=== PATIENT | female | born 1940 | race Caucasian/White ===

== ENCOUNTER 2017-06-29 08:00 | Outpatient (CLI) | payer MEDICARE ==
[2017-06-29 19:17] LABS: BASOPHILS # (AUTO) 0.2 10^3/uL (0.0-0.1); BASOPHILS % (AUTO) 1.7 %; EOSINOPHILS # (AUTO) 0.3 10^3/uL (0.0-0.7); EOSINOPHILS % (AUTO) 2.8 %; LYMPHOCYTES % (AUTO) 17.9 %; MEAN CORPUSCULAR HGB CONC 32.2 g/dL (32.0-36.0); MEAN CORPUSCULAR VOLUME 93.2 fL (81.0-99.0); MONOCYTES # (AUTO) 0.7 10^3/uL (0.0-1.0); MONOCYTES % (AUTO) 6.2 %; NEUTROPHILS # (AUTO) 7.8 10^3/uL (1.5-6.6); NEUTROPHILS % (AUTO) 71.4 %; PLT - PLATELET COUNT 319 10^3/uL (130-450); RED BLOOD COUNT 4.67 10^6/uL (4.20-5.40); RED CELL DISTRIBUTION WIDTH 15.5 % (12.0-15.0); WHITE BLOOD COUNT 10.9 x10^3/uL (4.8-10.8)
[2017-06-29 20:16] LABS: HB2 TOTAL 15.4 g/dL; HEMOGLOBIN A1C 0.61 g/dL; HEMOGLOBIN A1C % 5.8 % (4.6-6.2)
== END 2017-06-29 08:01 ==
LOC: LAB.WCP 08:00
PROVIDERS: ATTEND Physician Assistant
DX: Z00.00 Encounter for general adult medical examination without abnormal findings (principal); I10 Essential (primary) hypertension
CPT/HCPCS: 36415; 80053; 80061; 83036; 83721; 84443; 85025

== ENCOUNTER 2017-07-02 08:41 | Outpatient (CLI) | payer MEDICARE ==
[2017-07-02 16:45] LABS: ALBUMIN/GLOBULIN RATIO 0.9 (1.0-2.2); ALKALINE PHOSPHATASE 51 IU/L (42-121); ALT ALANINE AMINOTRANSFERASE 25 IU/L (10-60); AST ASPARTATE AMINOTRANSFERASE 25 IU/L (10-42); BILIRUBIN,TOTAL 0.6 mg/dL (0.2-1.0); BUN - BLOOD UREA NITROGEN 36 mg/dL (6-20); CALCIUM 9.7 mg/dL (8.5-10.3); CARBON DIOXIDE - CO2 24 mmol/L (21-32); CHLORIDE 103 mmol/L (101-111); CHOLESTEROL 222 mg/dL; GFR - MDRD 54 (>89); GLUCOSE 110 mg/dL (70-100); HDL CHOLESTEROL 73 mg/dL; LDL CHOLESTEROL,CALCULATED 117 mg/dL; LDL/HDL RATIO 1.6 (<4.4); SODIUM 137 mmol/L (135-145); TOTAL PROTEIN 8.5 g/dL (6.7-8.2); URIC ACID 8.6 mg/dL (2.6-7.2); VLDL CHOLESTEROL 32 mg/dL
== END 2017-07-02 08:42 ==
LOC: LAB.WCP 08:41
PROVIDERS: ATTEND Physician Assistant
DX: Z00.00 Encounter for general adult medical examination without abnormal findings (principal); I10 Essential (primary) hypertension; M1A.9XX0 Chronic gout, unspecified, without tophus (tophi)
CPT/HCPCS: 36415; 80053; 80061; 83721; 84550

== ENCOUNTER 2019-11-18 13:44 | Outpatient (CLI) | payer MEDICARE | END 2019-11-18 13:45 | disposition critical access hospital (66) | LOC: EMS 13:44 | PROVIDERS: ATTEND Surgery | DX: R41.0 Disorientation, unspecified (principal); M25.532 Pain in left wrist | CPT/HCPCS: A0425; A0429 ==

== ENCOUNTER 2019-11-18 13:56 | Inpatient (IN) | payer MEDICARE ==
--- NOTE | 2019-11-18 14:13 | ED Physician Documentation ---
PD HPI FOCAL NEURO - Stated complaint Stated Complaint: FALL - Chief complaint Chief Complaint: Neuro - History obtained from History obtained from: Patient, Family (), EMS - Additional information Additional information: Sometime during the night last night she fell. She fell out of bed. This is been happening frequently per the . Over the last 3 weeks he says he is noted weakness on the left. Also some mild confusion started more recently. Last night after falling she could not get off the floor. She denies any injuries. Review of Systems Ten Systems: 10 systems reviewed and negative Constitutional: reports: Reviewed and negative Throat: reports: Reviewed and negative Cardiac: reports: Reviewed and negative PD PAST MEDICAL HISTORY - Present Medications Home Medications: Ambulatory Orders Medication Instructions Recorded Confirmed Allopurinol [Zyloprim] 300 mg PO DAILY 11/18/19 Aspirin [Aspirin EC] 325 mg PO DAILYWM PRN 11/18/19 Atenolol [Tenormin] 100 mg PO DAILY 11/18/19 - Allergies Allergies/Adverse Reactions: Allergies Allergy/AdvReac Type Severity Reaction Status Date / Time No Known Drug Allergies Allergy Verified 11/18/19 16:17 PD ED PE NORMAL - Vitals Vital signs reviewed: Yes - General General: Other (Oriented to person and place but not time, she knows the month but not the year. 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 Eye Opening: Spontaneous Motor: Obeys Commands Verbal: Confused GCS Score: 14 - Psych Psych: Normal mood, Normal affect NIHSS - Time Time: 14:05 - Level of Consciousness Level of consciousness: (0) Alert, Keenly responsive LOC Questions: (1) Answers one Q correctly LOC Commands: (0) Performs both correctly - Gaze Best Gaze: (0) Normal - Visual Visual: (0) No loss - Facial Palsy Facial Palsy: (0) Normal, symmetrical movement - Motor Arms (both separate) Motor Arm (right): (0) No drift Motor Arm (left): (1) Drift - Motor Legs (both separate) Motor Leg (right): (0) No drift Motor Leg (left): (1) Drift - Limb Ataxia Limb Ataxia: (0) Absent - Sensory Sensory: (0) Normal - Best Language Best Language: (0) No aphasia - Dysarthria Dysarthria: (0) Normal - Extinction and Inattention (formally neg Extinction and inattention: (0) No abnormality - Total Score/Results Total Score/Result: 3 Results - Vitals Vitals: Vital Signs - 24 hr 11/18/19 11/18/19 11/18/19 14:00 14:07 15:00 Temperature 36.7 C Heart Rate 116 H 112 H 108 H Respiratory 16 16 16 Rate Blood Pressure 129/75 138/82 H 142/83 H O2 Saturation 97 96 96 Oxygen O2 Source Room air - EKG (time done) 1404 Rate: Rate (enter#) (112) Rhythm: Sinus tachycardia [place]: Normal Intervals: Normal IA QRS: Normal Ischemia: Non specific changes Computer interpretation: Disagree with computer (artifact) - Labs Labs: Laboratory Tests 11/18/19 11/18/19 11/18/19 14:14 14:14 14:14 WBC 12.1 H RBC 4.86 Hgb 14.6 Hct 46.0 MCV 94.7 MCH 30.0 MCHC 31.7 L RDW 13.1 Plt Count 474 H MPV 10.4 Neut # (Auto) 8.6 H Lymph # (Auto) 1.8 [place] # (Auto) 0.9 Eos # (Auto) 0.7 Baso # (Auto) 0.1 Absolute Nucleated RBC 0.00 Nucleated RBC % 0.0 Sodium 142 Potassium 3.5 Chloride 105 Carbon Dioxide 26 Anion Gap 11.0 BUN 14 Creatinine 0.9 Estimated GFR (MDRD) 61 L Glucose 139 H Calcium 10.8 H Total Bilirubin 0.6 AST 22 ALT 21 Alkaline Phosphatase 76 Total Creatine Kinase 33 Troponin I High Sens 7.7 Total Protein 8.4 H Albumin 3.6 Globulin 4.8 H Albumin/Globulin Ratio 0.8 L Lipase 58 H Urine Color Urine Clarity Urine pH Ur Specific [place] Urine Protein Urine Glucose (UA) Urine Ketones Urine Occult Blood Urine Nitrite Urine Bilirubin Urine Urobilinogen Ur Leukocyte Esterase Urine RBC Urine WBC Ur Squamous Epith Cells Urine Bacteria Ur Microscopic Review Urine Culture Comments 11/18/19 14:44 WBC RBC Hgb Hct MCV MCH MCHC RDW Plt Count MPV Neut # (Auto) Lymph # (Auto) [place] # (Auto) Eos # (Auto) Baso # (Auto) Absolute Nucleated RBC Nucleated RBC % Sodium Potassium Chloride Carbon Dioxide Anion Gap BUN Creatinine Estimated GFR (MDRD) Glucose Calcium Total Bilirubin AST ALT Alkaline Phosphatase Total Creatine Kinase Troponin I High Sens Total Protein Albumin Globulin Albumin/Globulin Ratio Lipase Urine Color YELLOW Urine Clarity HAZY Urine pH 6.0 Ur Specific [place] 1.020 Urine Protein NEGATIVE Urine Glucose (UA) NEGATIVE Urine Ketones NEGATIVE Urine Occult Blood SMALL H Urine Nitrite POSITIVE H Urine Bilirubin NEGATIVE Urine Urobilinogen 0.2 (NORMAL) Ur Leukocyte Esterase LARGE H Urine RBC 0-5 Urine WBC >25 H Ur Squamous Epith Cells NONE SEEN Urine Bacteria Many H Ur Microscopic Review INDICATED Urine Culture Comments INDICATED - Rads (name of study) CT Head Radiology: EMP read contemporaneously (Volume loss and periventricular small vessel ischemic changes without obvious acute disease.Cerebral volume loss) PD MEDICAL DECISION MAKING - ED course ED course: 79-year-old woman presents with 1 to 2 weeks of left-sided weakness, now more acute confusion. Multiple falls including a fall last night and could not get out of bed even with her 's help. She has left-sided deficits. Time course consists firms probably a completed stroke. Also UTI. Administered Rocephin for same. Spoke with Dr. Venegas for admission at 3:25 PM. Departure - Departure Disposition: 66 [facility] DC/Xfer Clinical Impression: Encephalopathy Cerebrovascular accident (CVA) Qualifiers: CVA mechanism: unspecified Qualified Code(s): I63.9 - Cerebral infarction, unspecified Fall from bed Qualifiers: Encounter type: initial encounter Qualified Code(s): W06.XXXA - Fall from bed, initial encounter UTI (urinary tract infection) Qualifiers: Urinary tract infection type: site unspecified Hematuria presence: without hematuria Qualified Code(s): N39.0 - Urinary tract infection, site not specified Condition: Serious Discharge Date/Time: 11/18/19 17:00
[2019-11-18 14:18] LABS: BASOPHILS # (AUTO) 0.1 10^3/uL (0.0-0.1); BASOPHILS % (AUTO) 0.5 %; EOSINOPHILS # (AUTO) 0.7 10^3/uL (0.0-0.7); EOSINOPHILS % (AUTO) 5.7 %; HGB - HEMOGLOBIN 14.6 g/dL (12.0-16.0); LYMPHOCYTES # (AUTO) 1.8 10^3/uL (1.5-3.5); LYMPHOCYTES % (AUTO) 14.8 %; MEAN CORPUSCULAR HGB CONC 31.7 g/dL (32.0-36.0); MEAN CORPUSCULAR VOLUME 94.7 fL (81.0-99.0); MEAN PLATELET VOLUME 10.4 fL (7.9-10.8); MONOCYTES # (AUTO) 0.9 10^3/uL (0.0-1.0); MONOCYTES % (AUTO) 7.5 %; NEUTROPHILS # (AUTO) 8.6 10^3/uL (1.5-6.6); NEUTROPHILS % (AUTO) 71.2 %; PLT - PLATELET COUNT 474 10^3/uL (130-450); RED BLOOD COUNT 4.86 10^6/uL (4.20-5.40); RED CELL DISTRIBUTION WIDTH 13.1 % (12.0-15.0); WHITE BLOOD COUNT 12.1 x10^3/uL (4.8-10.8)
[2019-11-18 14:31] LABS: ALBUMIN 3.6 g/dL (3.2-5.5); ALBUMIN/GLOBULIN RATIO 0.8 (1.0-2.2); BILIRUBIN,TOTAL 0.6 mg/dL (0.2-1.0); CALCIUM 10.8 mg/dL (8.5-10.3); CREATININE 0.9 mg/dL (0.4-1.0); TOTAL PROTEIN 8.4 g/dL (6.7-8.2)
--- NOTE | 2019-11-18 14:47 | CT Report ---
PROCEDURE: HEAD WO INDICATIONS: L sided weakness TECHNIQUE: Noncontrast 4.5 mm thick angled axial sections acquired from the foramen magnum to the vertex. For r adiation dose reduction, the following was used: automated exposure control, adjustment of mA and/or kV according to patient size. COMPARISON: None FINDINGS: Image quality: Excellent. CSF spaces: Basal cisterns are patent. No extra-axial fluid collections. The ventricles are symmet kavitha in size and shape. Brain: No intracranial bleeds or masses. There is cerebral volume loss for age, with resultant vent ricular and sulcal prominence. There are periventricular and deep white matter chronic small vessel ischemic changes. There is intracranial internal carotid artery and vertebral artery atherosclerosis . Skull and face: Calvarium and visualized facial bones appear intact, without suspicious lesions. Sinuses: Visualized sinuses and mastoids are clear. IMPRESSION: No acute intracranial disease process. Reviewed by: Paulina Langley MD, PhD on 11/18/2019 2:46 PM PDT Approved by: Paulina Langley MD, PhD on 11/18/2019 2:46 PM PDT Station ID: [id number]
[2019-11-18 14:53] LABS: BILIRUBIN,URINE NEGATIVE (NEGATIVE); GLUCOSE, URINE (UA) NEGATIVE (NEGATIVE); KETONES,URINE (UA) NEGATIVE (NEGATIVE); LEUKOCYTE ESTERASE, URINE LARGE (NEGATIVE); NITRITE,URINE POSITIVE (NEGATIVE); OCCULT BLOOD,URINE SMALL (NEGATIVE); PROTEIN,URINE NEGATIVE (NEGATIVE); UROBILINOGEN,URINE 0.2 (NORMAL) E.U./dL (NORMAL)
[2019-11-18 14:59] LABS: CLARITY,URINE HAZY (CLEAR)
[2019-11-18 15:08] LABS: BACTERIA,URINE Many /HPF (None Seen); RBC,URINE 0-5 /HPF (0-5); SQUAMOUS EPITHELIAL CELL,UR NONE SEEN (<= Few)
[2019-11-18] MEDS ORDERED: cefTRIAXone 1 GM in SODIUM CHLORIDE 0.9% MINIBAG 100 ML IV STA (15:14)
[2019-11-18] MEDS ORDERED: cefTRIAXone 1 GM VIAL ONE (15:23)
[2019-11-18] MEDS ORDERED: ONDANSETRON 4 MG/2 ML VIAL IVP PRN (15:48)
[2019-11-18] MEDS: DEXTROSE 5%-0.9% NACL 1,000 ML IV SCH (18:00)
[2019-11-18] MEDS: SODIUM CHLORIDE FLUSH 0.9% 10 ML SYRINGE IVP SCH (18:01)
--- NOTE | 2019-11-18 21:48 | HISTORY & PHYSICAL EXAMINATION ---
DATE OF SERVICE: 11/18/2019 Physician: Bsesy Venegas MD HISTORY OF PRESENT ILLNESS: This is a 79-year-old white female who has a history of hypertension and is supposed to be taking Atenolol. The patient states that she has no diagnoses and takes no medications. The patient presented to the emergency room after a fall that occurred last night. The gave most of the history to the ER doctor. Apparently, the patient has had weakness of the left arm over the last one week and in the last one day or so has been more confused. Yesterday during the night, she tried to get out of bed and fell. The patient remembers that and denies to me, having a prodrome of dizziness or lightheadedness and does not feel like her "legs gave out on her or buckled." She does not think she tripped. She landed on the ground and called for her for help. They tried to raise her and were unsuccessful, so the gave her a pillow and a blanket and she was able to sleep on the floor through the night. It is not known how and for what duration she was there until apparently there was an ambulance that was called in the following afternoon (which is today). There is no ambulance run sheet available to me to read about the scene. When she presented to the emergency room, it was noted that she was covered in feces. The emergency room also noted that she had left arm weakness, was oriented to person and place, but not to time. She was incontinent of stool in the emergency room. She was confused, but answering appropriately and obeying commands and her GCS score was 14. She underwent a head CT that did not show any signs of a stroke; however, the emergency room doctor's personal impression was that there was a frontal hypodense area that could be a stroke. The patient denies to me ever having a fall like this before and has not had weakness such as this. Her only complaint is pain in the left arm from the elbow to the hand and she does not think that is weak. MEDICATIONS 1. Allopurinol 300 mg daily. 2. Aspirin 325 mg either daily or p.r.n. 3. Atenolol 100 mg daily. The patient does not take any of these medications, she claims. ALLERGIES: NONE. SOCIAL HISTORY: The patient is an ex-smoker who quit 20 years ago. She drinks approximately four drinks of alcohol per week, not heavier she states. She denies any marijuana use. She lives with her . She states she no longer drives. She cannot remember what she does during an average day when she feels fine. She states she used to read a lot, but does not read anymore. She states she does not drive a car anymore. 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 FAMILY HISTORY: No inherited diseases. REVIEW OF SYSTEMS: The patient cannot remember the name of her PCP and when she last went to see that person. She denies a fever, cough, chest pain, shortness of breath, leg edema. A comprehensive review of systems was performed and the pertinent positives are listed above, the rest are negative. PHYSICAL EXAM GENERAL: Elderly white female. She is poorly kempt. VITAL SIGNS: Blood pressure 149/65, heart rate 105-110 in sinus rhythm, afebrile, room air saturation 97%. HEENT: Reveals dry oral mucosa, good dentition and her hair is poorly kempt. NECK: No JVD or carotid bruits. CHEST: Clear. HEART: Normal heart sounds. ABDOMEN: Soft, nontender. No organomegaly. EXTREMITIES: No clubbing, cyanosis or edema. No calf tenderness. NEUROLOGIC: The left arm has 4/5 strength. The right arm and both legs have 5/5 strength. Her answers were short but appropriate. She has a resting tremor of her lower jaw. There is no asterixis or nystagmus. LABORATORY DATA: Normal electrolytes. Normal BUN and creatinine. Calcium was 10.8 with albumin of 3.6. Troponin normal at 7.7. Normal liver tests. Lipase 58. White blood count 12.1, hemoglobin 14.6, platelet count 474. Urinalysis had pH of 6, specific gravity 1.02, small occult blood, positive nitrites, large leukocyte esterase, many white blood cells and many bacteria. No MUDS was done. IMAGING: Chest x-ray was not done. Head CT official report said no acute intracranial disease process except there are deep white matter chronic small vessel ischemic changes seen. EKG: Sinus tachycardia at a rate of 112. She has RSR' in V1, but normal R-wave progression. There is no old EKG available for comparison. IMPRESSION/DIAGNOSES 1. Confusion. Possible encephalopathy associated with the UTI vs dementia, given the findings on head CT. 2. Fall. No signs of rhabdomyolysis. 3. Left arm weakness. 4. Urinary tract infection. 5. Elevated white blood count. 6. Hypertension, poorly controlled. 7. Noncompliance with medications. PLAN: Admit the patient to inpatient status, on telemetry. Begin workup for a possible stroke to include an Echo with bubble study, carotid Dopplers after a brain MRI. Check a lipid panel. Begin IV hydration and treatment of the UTI with empiric IV antibiotics. Await the urine culture that was sent from the ER. Follow CBC daily. Treat with IV hydralazine p.r.n. for high blood pressure readings, and resume Atenolol if she is indeed hypertensive. Resume her aspirin and Allopurinol. Obtain PT evaluation and OT consult for cognition, if she is still confused after hydration and antibiotics. Obtain orthostatic vital signs. The confusion may be related to metabolic encephalopathy from the urinary tract infection or a chronic problem, thus we will follow her with neuro checks. SW to help assess the safety of the home living situation. CODE STATUS: Full code, the patient confirmed this. DEEP VENOUS THROMBOSIS PROPHYLAXIS: SCDs. ATTESTATION: The patient is expected to be discharged or transferred to another facility within 96 hours: Yes. cc: Kayla Avalos MD TD: 11/18/2019 18:59 MTDD
--- NOTE | 2019-11-18 23:06 | MRI Report ---
PROCEDURE: Brain W/O INDICATIONS: Left sided weakness TECHNIQUE: Noncontrast axial T1 spin echo, axial T2 fast spin echo, sagittal and axial FLAIR, coronal T2 fast sp in echo, axial gradient echo, axial diffusion and ADC through the brain. COMPARISON: None. Correlation made to head CT performed the same day FINDINGS: Image quality: Nearly nondiagnostic.. CSF Spaces: Basal cisterns are patent. No extra-axial fluid collections. Ventricles are normal in size and shape. Brain: No large areas of restricted diffusion. The scan is otherwise limited for detecting small lesi ons. No large areas of intraparenchymal or extra-axial hemorrhage Skull and face: Calvarium cannot be well assessed. Orbits are not well seen. Sinuses: Sinuses and mastoids are not well seen. IMPRESSION: 1. Extremely limited scan. 2. No large areas of restricted diffusion or significant hemorrhage. Reviewed by: Irish Rendon MD on 11/18/2019 11:04 PM PDT Approved by: Irish Rendon MD on 11/18/2019 11:04 PM PDT Station ID: [id number]
[2019-11-19] MEDS: SODIUM CHLORIDE FLUSH 0.9% 10 ML SYRINGE IVP SCH ×3 (01:00→15:30)
[2019-11-19] MEDS: DEXTROSE 5%-0.9% NACL 1,000 ML IV SCH ×2 (03:48→15:29)
[2019-11-19 05:16] LABS: BASOPHILS # (AUTO) 0.1 10^3/uL (0.0-0.1); BASOPHILS % (AUTO) 0.6 %; EOSINOPHILS # (AUTO) 0.8 10^3/uL (0.0-0.7); EOSINOPHILS % (AUTO) 9.1 %; HGB - HEMOGLOBIN 12.3 g/dL (12.0-16.0); LYMPHOCYTES # (AUTO) 2.2 10^3/uL (1.5-3.5); LYMPHOCYTES % (AUTO) 24.3 %; MEAN CORPUSCULAR HEMOGLOBIN 29.2 pg (27.0-31.0); MEAN CORPUSCULAR HGB CONC 30.4 g/dL (32.0-36.0); MEAN PLATELET VOLUME 10.7 fL (7.9-10.8); MONOCYTES # (AUTO) 0.8 10^3/uL (0.0-1.0); MONOCYTES % (AUTO) 9.2 %; NEUTROPHILS # (AUTO) 5.1 10^3/uL (1.5-6.6); NEUTROPHILS % (AUTO) 56.5 %; PLT - PLATELET COUNT 387 10^3/uL (130-450); RED BLOOD COUNT 4.21 10^6/uL (4.20-5.40); RED CELL DISTRIBUTION WIDTH 13.3 % (12.0-15.0); WHITE BLOOD COUNT 9.1 x10^3/uL (4.8-10.8)
[2019-11-19 05:26] LABS: CALCIUM 9.6 mg/dL (8.5-10.3); CREATININE 0.8 mg/dL (0.4-1.0); MAGNESIUM 1.7 mg/dL (1.7-2.8)
[2019-11-19] MEDS: PANTOPRAZOLE 40 MG VIAL IVP SCH (06:26)
[2019-11-19] MEDS: SODIUM CHLORIDE FLUSH 0.9% 10 ML SYRINGE IVP PRN (06:27)
--- NOTE | 2019-11-19 08:11 | PROVIDER PROGRESS NOTE ---
Assessment/Plan - Problem List (1) Encephalopathy Assessment/Plan: This confusion could be multifactorial: From her infection and possibly underlying dementia. She is not truly dehydrated. A stroke has been ruled out by brain MRI. There are small vessel changes by brain CT that would be consistent with d ementia. Patient told me she no longer drives or prepares meals, suggesting there is a component of dementia The patient did describe drinking 4 alcoholic drinks per week approximately, therefore, there could be component of Warnicke's encephalopathy. We will continue with IV hydration and IV antibiotics to assess if there is improvement in confusion. We will order a CIWA protocol in case of alcohol withdrawal from higher actual alcohol intake history. Will advance her diet from dysphagia pured to soft diet, cut food, low sodium, Since she tolerated her pured diet with no signs of aspiration. We will try to confirm this patient's activity and mentation by reaching the . If there is no improvement after several days of treating the underlying infection, will obtain OT consult for cognitive eval. (2) Fall at home Assessment/Plan: There are no signs of rhabdo or DIEGO, despite laying on the floor for many hours. Will start to obtain orthostatic vital sign checks to evaluate for cause of falling. PT evaluation will be ordered regarding her gait and balance and strength. (3) UTI (urinary tract infection) Qualifiers: Urinary tract infection type: site unspecified Hematuria presence: without hematuria Qualified Code(s): N39.0 - Urinary tract infection, site not specified Assessment/Plan: White blood count has improved to 12 down to 9 today. Heart rate has improved from 110 to 90s. There has been no fever. Urine cultures were sent from the ER. I cannot tell from [employer] if blood cultures were sent as well. Continue with empiric ceftriaxone until cx done (4) Left arm weakness Assessment/Plan: Brain MRI confirmed no acute stroke. Since her complaint is pain from the elbow to the fingers on the left arm, will order x-rays to determine if there is an orthopedic reason for these symptoms of pain and weakness and will then obtain an orthopedic consult. (5) Hx of essential hypertension Assessment/Plan: Blood pressure systolic is only minimally up in the 150s intermittently. We will not restart the home dose of Atenolol yet (6) Noncompliance Assessment/Plan: Patient stated that she took no medicines but her med list includes atenolol, aspirin and allopurinol. This may be from simple refusal or related to the confusion and not remembering her diagnoses and that she does take medicines. We will try to reach the to confirm these things. We will restart the daily aspirin and confirm if she is really on allopurinol - Current Meds Current Meds: Current Medications Generic Name Dose Route Start Last Admin Trade Name Freq PRN Reason Stop Dose Admin Dextrose/Sodium Chloride 1,000 mls @ 100 mls/hr 11/18/19 16:00 11/19/19 03:48 D5ns IV 100 mls/hr .Q10H NANETTE Administration Pantoprazole Sodium 40 mg 11/19/19 07:00 11/19/19 06:26 Protonix IVP 40 mg QDAC NANETTE Administration Sodium Chloride 10 ml 11/18/19 15:48 11/19/19 06:27 Normal Saline Flush 0.9% IVP 10 ml PRN PRN Administration NEEDED PER PROVIDER ORDERS Sodium Chloride 10 ml 11/18/19 17:00 11/19/19 01:00 Normal Saline Flush 0.9% IVP Not Given 0100,0900,1700 NANETTE - Lab Result Fish Bone Diagrams: 11/19/19 04:35 11/19/19 04:35 - Additional Planning My Orders: My Active Orders 11/18/19 15:48 Activity Orders [RC] Q2HR IO [RC] IOSHIFT Initiate Bowel Care Protocol [RC] .protocol Initiate Line Care Protocol [RC] QSHIFT Initiate Personal Care Protoco [RC] .protocol Oxygen Therapy [RC] Routine Telemetry- [RC] Q4HR Vital Signs [RC] Q4H Ondansetron Inj [Zofran Inj] 4 mg IVP Q6HR PRN Sodium Chloride Flush 0.9% [Normal Saline Flush 0.9%] 10 ml IVP PRN PRN Code Status [OTHERS] Routine Condition of Patient [OTHERS] Routine DVT Prophylaxis [OTHERS] Routine 11/18/19 15:49 Daily Weight [RC] 0600 11/18/19 15:50 IV Insert [RC] .ONCE SCDs [RC] QSHIFT 11/18/19 16:00 Dextrose 5%-0.9% NaCl [D5ns] 1,000 ml IV 100 mls/hr 11/18/19 Dinner Dysphagia Puree Diet [DIET] 11/18/19 16:20 Neuro Check [RC] QSHIFT 11/18/19 16:22 Echo Complete w/Bubble Study [ECHO] Routine 11/18/19 17:00 Sodium Chloride Flush 0.9% [Normal Saline Flush 0.9%] 10 ml IVP 0100,0900,1700 11/19/19 04:30 LIPASE [CHEM] Routine 11/19/19 07:00 Pantoprazole [Protonix] 40 mg IVP QDAC 11/19/19 07:50 Elbow 2 View LT [XR] Stat Finger(s) LT [XR] Stat Forearm LT [XR] Stat 11/19/19 09:00 cefTRIAXone [Rocephin] 1 gm Sodium Chloride 0.9% Minibag [Normal Saline 0.9% Minibag] 100 ml IV DAILY 11/20/19 05:00 BMP - BASIC METABOLIC PANEL [CHEM] DAILYLAB CBC - COMP BLD CT W/AUTO DIFF [HEME] DAILYLAB 11/21/19 05:00 BMP - BASIC METABOLIC PANEL [CHEM] DAILYLAB CBC - COMP BLD CT W/AUTO DIFF [HEME] DAILYLAB 11/22/19 05:00 BMP - BASIC METABOLIC PANEL [CHEM] DAILYLAB CBC - COMP BLD CT W/AUTO DIFF [HEME] DAILYLAB Subjective - Subjective Patient Reports: Resting Comfortably, No Complaints, Other (Is an ice pack over her left wrist and forearm) Objective Vital Signs: Vital Signs - 24 hr 11/18/19 11/18/19 11/18/19 14:00 14:07 15:00 Temperature 36.7 C Heart Rate 116 H 112 H 108 H Heart Rate [ Brachial] Respiratory 16 16 16 Rate Blood Pressure 129/75 138/82 H 142/83 H Blood Pressure [Left Brachial artery] Blood Pressure [Right Brachial artery] O2 Saturation 97 96 96 11/18/19 11/18/19 11/18/19 16:20 16:25 17:48 Temperature 36.9 C 36.5 C Heart Rate 101 H 105 H Heart Rate [ 110 H Brachial] Respiratory 16 22 16 Rate Blood Pressure 143/94 H 149/65 H Blood Pressure 147/86 H [Left Brachial artery] Blood Pressure [Right Brachial artery] O2 Saturation 97 96 97 11/18/19 11/18/19 11/19/19 21:36 23:43 04:40 Temperature 36.5 C 36.6 C 36.5 C Heart Rate Heart Rate [ 95 95 92 Brachial] Respiratory 18 18 16 Rate Blood Pressure Blood Pressure 146/72 H [Left Brachial artery] Blood Pressure 149/60 H 154/74 H [Right Brachial artery] O2 Saturation 95 98 96 11/19/19 07:54 Temperature 36.6 C Heart Rate Heart Rate [ 92 Brachial] Respiratory 17 Rate Blood Pressure Blood Pressure 159/68 H [Left Brachial artery] Blood Pressure [Right Brachial artery] O2 Saturation 100 Oxygen O2 Source Room air I&O (Last 24 Hrs): Intake and Output Totals x24h 11/17/19 11/18/19 11/19/19 23:59 23:59 23:59 Intake Total 575 980 Output Total 100 Balance 575 880 General: Alert, Other (Oriented x2, to person and place and only partly to time) HEENT: Mucous membr. moist/pink Neck: Supple, No JVD Neuro: Alert, Other (Intermittent fine tremor over lower jaw and R hand) Cardiovascular: Regular rate, No murmurs Respiratory: No respiratory distress Abdomen: Normal bowel sounds Extremities: No edema - Results Results: Laboratory Results WBC 9.1 x10^3/uL (4.8-10.8) 11/19/19 04:35 RBC 4.21 10^6/uL (4.20-5.40) 11/19/19 04:35 Hgb 12.3 g/dL (12.0-16.0) 11/19/19 04:35 Hct 40.4 % (37.0-47.0) 11/19/19 04:35 MCV 96.0 fL (81.0-99.0) 11/19/19 04:35 MCH 29.2 pg (27.0-31.0) 11/19/19 04:35 MCHC 30.4 g/dL (32.0-36.0) L 11/19/19 04:35 RDW 13.3 % (12.0-15.0) 11/19/19 04:35 Plt Count 387 10^3/uL (130-450) 11/19/19 04:35 MPV 10.7 fL (7.9-10.8) 11/19/19 04:35 Neut # (Auto) 5.1 10^3/uL (1.5-6.6) 11/19/19 04:35 Lymph # (Auto) 2.2 10^3/uL (1.5-3.5) 11/19/19 04:35 [place] # (Auto) 0.8 10^3/uL (0.0-1.0) 11/19/19 04:35 Eos # (Auto) 0.8 10^3/uL (0.0-0.7) H 11/19/19 04:35 Baso # (Auto) 0.1 10^3/uL (0.0-0.1) 11/19/19 04:35 Absolute Nucleated RBC 0.00 x10^3/uL 11/19/19 04:35 Nucleated RBC % 0.0 /100WBC 11/19/19 04:35 Sodium 142 mmol/L (135-145) 11/19/19 04:35 Potassium 3.6 mmol/L (3.5-5.0) 11/19/19 04:35 Chloride 111 mmol/L (101-111) 11/19/19 04:35 Carbon Dioxide 23 mmol/L (21-32) 11/19/19 04:35 Anion Gap 8.0 (6-13) 11/19/19 04:35 BUN 12 mg/dL (6-20) 11/19/19 04:35 Creatinine 0.8 mg/dL (0.4-1.0) 11/19/19 04:35 Estimated GFR (MDRD) 70 (>89) L 11/19/19 04:35 Glucose 123 mg/dL (70-100) H 11/19/19 04:35 Calcium 9.6 mg/dL (8.5-10.3) 11/19/19 04:35 Magnesium 1.7 mg/dL (1.7-2.8) 11/19/19 04:35 Total Bilirubin 0.6 mg/dL (0.2-1.0) 11/18/19 14:14 AST 22 IU/L (10-42) 11/18/19 14:14 ALT 21 IU/L (10-60) 11/18/19 14:14 Alkaline Phosphatase 76 IU/L (42-121) 11/18/19 14:14 Total Creatine Kinase 33 IU/L (22-269) 11/18/19 14:14 Troponin I High Sens 7.7 ng/L (2.3-14.8) 11/18/19 14:14 Total Protein 8.4 g/dL (6.7-8.2) H 11/18/19 14:14 Albumin 3.6 g/dL (3.2-5.5) 11/18/19 14:14 Globulin 4.8 g/dL (2.1-4.2) H 11/18/19 14:14 Albumin/Globulin Ratio 0.8 (1.0-2.2) L 11/18/19 14:14 Lipase 58 U/L (22-51) H 11/18/19 14:14 Urine Color YELLOW 11/18/19 14:44 Urine Clarity HAZY (CLEAR) 11/18/19 14:44 Urine pH 6.0 PH (5.0-7.5) 11/18/19 14:44 Ur Specific [place] 1.020 (1.002-1.030) 11/18/19 14:44 Urine Protein NEGATIVE mg/dL (NEGATIVE) 11/18/19 14:44 Urine Glucose (UA) NEGATIVE mg/dL (NEGATIVE) 11/18/19 14:44 Urine Ketones NEGATIVE mg/dL (NEGATIVE) 11/18/19 14:44 Urine Occult Blood SMALL (NEGATIVE) H 11/18/19 14:44 Urine Nitrite POSITIVE (NEGATIVE) H 11/18/19 14:44 Urine Bilirubin NEGATIVE (NEGATIVE) 11/18/19 14:44 Urine Urobilinogen 0.2 (NORMAL) E.U./dL (NORMAL) 11/18/19 14:44 Ur Leukocyte Esterase LARGE (NEGATIVE) H 11/18/19 14:44 Urine RBC 0-5 /HPF (0-5) 11/18/19 14:44 Urine WBC >25 /HPF (0-5) H 11/18/19 14:44 Ur Squamous Epith Cells NONE SEEN (<= Few) 11/18/19 14:44 Urine Bacteria Many /HPF (None Seen) H 11/18/19 14:44 Ur Microscopic Review INDICATED 11/18/19 14:44 Urine Culture Comments INDICATED 11/18/19 14:44
[2019-11-19] MEDS: cefTRIAXone 1 GM in SODIUM CHLORIDE 0.9% MINIBAG 100 ML IV SCH (08:38)
--- NOTE | 2019-11-19 08:58 | XRAY Report ---
PROCEDURE: Elbow 2 View LT INDICATIONS: Fall at home, pain and weakness L arm TECHNIQUE: 2 views of the elbow were acquired. COMPARISON: None FINDINGS: Bones: No fractures or dislocations. No suspicious bony lesions. Soft tissues: Minimal elbow joint effusion. No suspicious soft tissue calcifications. IMPRESSION: Minimal effusion. No visualized acute fracture or dislocation. However, occult injury cannot be exclu ded. Recommend short interval imaging follow-up in 7-10 days as clinically indicated for additional e valuation. Reviewed by: Concha Zelaya MD on 11/19/2019 8:57 AM PDT Approved by: Concha Zelaya MD on 11/19/2019 8:57 AM PDT Station ID: [id number]
--- NOTE | 2019-11-19 09:23 | XRAY Report ---
PROCEDURE: Finger(s) LT INDICATIONS: Fall at home, pain and weakness L arm TECHNIQUE: AP hand, 3 views of the finger(s) acquired. COMPARISON: X-ray forearm 11/19/2019. FINDINGS: Bones: No fractures or dislocations. No suspicious bony lesions. Moderate first CMC degenerative c hanges are present. Soft tissues: No suspicious soft tissue calcifications. IMPRESSION: No visualized acute fracture or dislocation. However, occult injury cannot be excluded. Recommend vivian rt interval imaging follow-up in 7-10 days as clinically indicated for additional evaluation. Reviewed by: Concha Zelaya MD on 11/19/2019 9:22 AM PDT Approved by: Concha Zelaya MD on 11/19/2019 9:22 AM PDT Station ID: [id number]
--- NOTE | 2019-11-19 09:23 | XRAY Report ---
PROCEDURE: Forearm LT INDICATIONS: Fall at home, pain and weakness L arm TECHNIQUE: 2 views of the forearm were acquired. COMPARISON: X-ray elbow, x-ray left fingers 11/19/2019 FINDINGS: Bones: No fractures or dislocations. No suspicious bony lesions. Soft tissues: No suspicious soft tissue calcifications or masses. IMPRESSION: No visualized acute fracture or dislocation. However, occult injury cannot be excluded. Recommend vivian rt interval imaging follow-up in 7-10 days as clinically indicated for additional evaluation. Reviewed by: Concha Zelaya MD on 11/19/2019 9:21 AM PDT Approved by: Concha Zelaya MD on 11/19/2019 9:21 AM PDT Station ID: [id number]
[2019-11-19] MEDS ORDERED: IOVERSOL 320 100 ML VIAL IVP ONE ×2 (10:58→13:09)
--- NOTE | 2019-11-19 13:07 | CT Report ---
PROCEDURE: Abdomen/Pelvis W INDICATIONS: UTI and suspected pancreatitis CONTRAST: IV CONTRAST: Optiray 320 ml: 100 PO CONTRAST: *NO PO CONTRAST TECHNIQUE: After the administration of intravenous contrast, 5 mm thick sections acquired from the diaphragms to the symphysis. 5 mm thick coronal and sagittal reformats were acquired. For radiation dose reducti on, the following was used: automated exposure control, adjustment of mA and/or kV according to ashanti ent size. COMPARISON: None. FINDINGS: Image quality: Excellent. ABDOMEN: Lung bases: Lung bases are clear. Heart size is normal. Solid organs: Liver and spleen are normal in size and enhancement. Gallbladder is unremarkable Angelo iary system is non dilated. Pancreas enhances normally. No adrenal nodules. Kidneys are atrophic w ith areas of loculation and vascular arterial calcifications. Small cysts are noted. Peritoneum and bowel: Bowel loops demonstrate normal wall thickness and caliber. No free fluid or a ir. Colonic diverticula are present. There is a minimal appearance of sigmoid colon thickening witho ut pericolonic inflammatory change. Nodes and vessels: No retroperitoneal or mesenteric adenopathy by size criteria. Aorta and inferior vena cava are normal in size. Miscellaneous: No ventral hernias. PELVIS: Genitourinary: Bladder wall thickness is normal. Miscellaneous: No inguinal hernias or adenopathy. Bones: No suspicious bony lesions. T12 superior endplate deformity is present appearing chronic. IMPRESSION: 1. No visualized pancreatic inflammation. Recommend correlation to enzyme levels. 2. Diverticulosis with minimal appearance of sigmoid thickening. However, no inflammatory pericolonic changes. Thickening could be secondary to area of incomplete distention. However, if clinically appr opriate, very early colitis cannot be definitively excluded. Reviewed by: Concha Zelaya MD on 11/19/2019 1:05 PM PDT Approved by: Concha Zelaya MD on 11/19/2019 1:05 PM PDT Station ID: [id number]
--- NOTE | 2019-11-19 14:09 | ADVANCE CARE PLANNING NOTE ---
Advance Care Planning - Planning Encounter Date: 11/19/19 Time: 13:40 Purpose: To obtain a more detailed PMH amd HPI. To confirm the patient's CODE wishes. Parties in Attendance: I spoke to the and to the son, Matt, outside of her room then we all went into her room and spoke at bedside. Decisional Capacity of the Patient: From THIS meeting, it is clear she has no decisional capacity. - Diagnosis for Encounter (1) Encephalopathy Summary: I reported that the patient was able to tell me that she no longer drives and no longer makes meals, her is a cook. 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 Approximately a year ago, they were both attending a gym and 1 day the patient stated she was overexerting herself and wanted to rest. The son said that ever since then she has "rested". The then added that she has been in bed for this last 1 year and hardly ever gets up. When I reported that yesterday the patient could not remember what she usually does during a typical day, which is a sign of dementia, the stated that she lays in bed all day, watches TV, naps on and off 29/09, he prepares the meals and brings them to her bedroom. She has not gone downstairs in 1 year. (2) UTI (urinary tract infection) Qualifiers: Urinary tract infection type: site unspecified Hematuria presence: without hematuria Qualified Code(s): N39.0 - Urinary tract infection, site not specified Summary: I described that she has a UTI. The asked how she got this. I described it is from [facility]. The then reported that she has been incontinent of urine and stool for about a year and never gets out of bed and he simply removes the bed sheets and other covers and throws them out. (3) Fall at home Summary: I asked for details about the fall, whether she rolled out of bed or stood and fell. The did not see it. He does confirm that he tried to get her back into bed and could not do it "because the bed is very high". He then said he should have probably changed the height of her mattress many years ago but never did. When asked about details of this fall he said "Which fall"?. I asked if there is been previous falls. He said "Truthfully, there have been many falls over the past 3 years, increasing in frequency recently". Son confirmed this. (4) Left arm weakness Summary: In the emergency room, the ER doctor got the history that the patient had left arm weakness which the noticed for 1 week. I asked him to confirm this. He stated that she states she cannot use her left arm which is been over a week and she does occasionally say it is painful. I told the son and the that our work-up thus far has shown no evidence of stroke to explain the left arm weakness therefore I think it is more week because it is painful and that it will be evaluated with x-rays and an Orthopedic consult. (5) Noncompliance Summary: I asked about her overall past medical history and the confirmed she has no established diagnoses. He did confirm that she has been on no medications whatsoever for many years. He thinks that the atenolol, allopurinol and aspirin are his meds. The described that a sister of their [id number] is a doctor (Chief of medicine at [facility]), and they used to occasionally call Chari for medical questions, but have not asked her for any advice in 5 to 10 years. The confirmed that the patient has not seen a provider in possibly 10 years. [place] years. - Encounter Goals of Care: Son reminded the patient's that they both filled out ya and advanced directives many years ago, signed by a operation manager who is a distant relative of their [id number]. The father then vaguely remember this. The son said he brought those papers in his car and I asked him to bring those in, to review and to have scanned on file in her chart. I reviewed the DPOA and advanced directives paperwork, which was done in 2007, and made a copy to be scanned into this medical record. There is no discussion in the any of that paperwork regarding her CODE STATUS. There is a written request not to have a feeding tube but no other direct specific medical planned requests. Plan: Continue with full medical management. Continue with FULL CODE STATUS. Will need to address whether the has decisional capacity or whether this has to now default to the 2 sons equally responsible, as the made comments about forgetting things, which the son witnessed during this meeting. Code Status: Attempt Resuscitation Time spent on advance care plannin min
[2019-11-19] MEDS: ASPIRIN EC 325 MG TABLET PO SCH (14:15)
--- NOTE | 2019-11-19 16:51 | PHARMACY PROGRESS NOTE ---
- Best Possible Medication History Admit Date and Time: 11/18/19 1548 Processed by: Pharmacy Medication History completed: Yes Patient Interview: Pt unable to participate Secondary Source(s): Physician records, Pharmacy records, Insurance records As the person ultimately responsible for medication therapy, providers are able to order a medication from an existing home medication list in [facility] via the "Reconcile Routine" prior to Confirmation of that medication by sales support technician. Such practice is discouraged except when the physician, in their clinical judgment, deems that a medical need exists for a medication without regard to previous use.
[2019-11-20] MEDS: DEXTROSE 5%-0.9% NACL 1,000 ML IV SCH (00:36)
[2019-11-20] MEDS: SODIUM CHLORIDE FLUSH 0.9% 10 ML SYRINGE IVP SCH ×3 (00:36→17:23)
[2019-11-20 05:17] LABS: BASOPHILS % (AUTO) 0.3 %; EOSINOPHILS # (AUTO) 0.9 10^3/uL (0.0-0.7); EOSINOPHILS % (AUTO) 9.8 %; LYMPHOCYTES # (AUTO) 1.7 10^3/uL (1.5-3.5); LYMPHOCYTES % (AUTO) 18.7 %; MEAN CORPUSCULAR HEMOGLOBIN 29.9 pg (27.0-31.0); MEAN CORPUSCULAR HGB CONC 31.2 g/dL (32.0-36.0); MEAN PLATELET VOLUME 10.7 fL (7.9-10.8); MONOCYTES # (AUTO) 0.8 10^3/uL (0.0-1.0); MONOCYTES % (AUTO) 9.2 %; NEUTROPHILS # (AUTO) 5.5 10^3/uL (1.5-6.6); NEUTROPHILS % (AUTO) 61.6 %; PLT - PLATELET COUNT 346 10^3/uL (130-450); RED BLOOD COUNT 4.01 10^6/uL (4.20-5.40); RED CELL DISTRIBUTION WIDTH 13.5 % (12.0-15.0); WHITE BLOOD COUNT 8.9 x10^3/uL (4.8-10.8)
[2019-11-20 05:24] LABS: CALCIUM 9.1 mg/dL (8.5-10.3); CREATININE 0.9 mg/dL (0.4-1.0)
[2019-11-20 05:33] LABS: CHOL/HDL RATIO 5.2 (<4.4); CHOLESTEROL 162 mg/dL; HDL CHOLESTEROL 31 mg/dL; LDL CHOLESTEROL,CALCULATED 93 mg/dL; VLDL CHOLESTEROL 38 mg/dL
[2019-11-20 05:52] LABS: DIFFERENTIAL COMMENT MANUAL=AUTO DIFF; PLATELET ESTIMATE, MANUAL NORMAL (130-450,000) (NORMAL); PLATELET MORPHOLOGY NORMAL APPEARANCE (NORMAL); RBC MORPHOLOGY (MULTIPLE) NORMAL APPEARANCE (NORMAL)
[2019-11-20] MEDS: PANTOPRAZOLE 40 MG VIAL IVP SCH (06:02)
[2019-11-20] MEDS: cefTRIAXone 1 GM in SODIUM CHLORIDE 0.9% MINIBAG 100 ML IV SCH (08:14)
[2019-11-20] MEDS: ASPIRIN EC 325 MG TABLET PO SCH (08:14)
--- NOTE | 2019-11-20 08:14 | PROVIDER PROGRESS NOTE ---
Assessment/Plan - Problem List (1) E. coli UTI Assessment/Plan: Urine culture results just returned showing E coli UTI that is not sensitive to Cipro or Levo. She is on empiric iv Ceftriaxone. CT of the abdomen pelvis did not show evidence of pyelonephritis. We will change to oral antibiotics when the sensitivities are known>>> start po Keflex 500 bid tomorrow (reviewed with Pharmacist Moses) (2) Dementia Assessment/Plan: After a long Advance Care Plan meeting which took place yesterday, between myself, the son, and patient, it was learned that she has not gotten out of her bed for 1 year, is incontinent of urine and stool in her mattress for 1 year which the just throws out and changes, she has not walked or gone downstairs in their house for 1 year, she has taken no medications for 5-10 years, has not been to a provider for about 10 years, therefore it is unknown if she had hypertension or hyperlipidemia for example. Upon presentation to the ER, it was reported to me that she was covered in dried feces. Social Work consult will be requested for placement, or arranging for assisted caregivers, and possibly for an APS report. 1 aspirin daily has been started, since she had diffuse ischemic changes on head CT. Will treat the high lipids (triglycerides) as below. The son Matt and were informed that it is not a safe discharge to return back to her daily life the way it was as described above; she will need assisted care. The has shown evidence that he also has severe memory problems (during yesterday's ACP), and he is listed as her DPOA in the legal paperwork. The 2 sons are listed as the alternate and shared DPOA's. There may need to be official determination of the 's decisional capacity therefore. Will ask for assistance, in all of this, as we go forward in her management, by obtaining a Palliative Care consult. (3) Fall at home Assessment/Plan: During the long meeting I had with the son and yesterday, it was learned that the patient has had several falls over the past 3 years. (The for said there were many over 3 years and then moments later he said he could not remember any other previous falls besides this one). It was established that she rolled out of bed. The could not get her back into bed because the mattress is very high. She laid on the floor on a pillow covered with a blanket. There are no signs of rhabdo or DIEGO however. Daily orthostatic vital signs have been ordered. PT has been ordered to start. We will also order OT (4) Orthostatic hypotension Assessment/Plan: Today is the first day she has had orthostatic vital sign checks. She is very orthostatic: Supine systolic BP is 162, which dropped to systolic BP of 135 during standing (a 28 mmHg drop), and her heart rate goes from 94 laying to 136 standing. Will manage with MORENITA hose (on when awakens, off at bedtime, and this should continue after DCh), and continued IV fluid replacement. (5) Left arm weakness Assessment/Plan: There was no evidence of stroke by head CT or by brain MRI. Because she also has pain in the same area, work-up for trauma that may have caused pain plus weakness, was started by x-raying the left upper extremity yesterday. An Orthopedic consult has also been requested>> Orthopedic surgeon recommended a brace for the wrist which will be ordered. (6) Elevated lipase Assessment/Plan: She has low-grade elevation of lipase in the 60s then 50s. CT of the abdomen did not show any pancreatic abnormalities. The patient does describe that she drinks about 4 alcoholic drinks per week. She has no abdominal symptoms such as pain or nausea vomiting. Will watch for alcohol withdrawal, CIWA protocol ordered. Will start daily oral Thiamine replacement. Will check INR which was not done at admission, also check GGT. We will monitor the serum lipase level intermittently. (7) Hypertriglyceridemia Assessment/Plan: With high triglycerides and low HDL, she probably has diffuse vascular disease, adding to the small vessel disease seen on CT scan. We will start daily fish oil capsules to treat the high triglycerides. (8) Hypokalemia Assessment/Plan: Likely related to poor intake. Replace. Follow BMP daily (9) Noncompliance Assessment/Plan: She is on no medications, and has not been for 5-10 years. The said that the med list which stated allopurinol, atenolol and aspirin was probably his medication list - Current Meds Current Meds: Current Medications Generic Name Dose Route Start Last Admin Trade Name Freq PRN Reason Stop Dose Admin Aspirin 325 mg 11/19/19 11:00 11/19/19 14:15 Ecotrin PO 325 mg DAILY NANETTE Administration Dextrose/Sodium Chloride 1,000 mls @ 100 mls/hr 11/18/19 16:00 11/20/19 00:36 D5ns IV 100 mls/hr .Q10H NANETTE Administration Ceftriaxone Sodium 1 gm/ 100 mls @ 200 mls/hr 11/19/19 09:00 11/19/19 09:18 Sodium Chloride IV Infused DAILY NANETTE Infusion Pantoprazole Sodium 40 mg 11/19/19 07:00 11/20/19 06:02 Protonix IVP 40 mg QDAC NANETTE Administration Sodium Chloride 10 ml 11/18/19 15:48 11/19/19 06:27 Normal Saline Flush 0.9% IVP 10 ml PRN PRN Administration NEEDED PER PROVIDER ORDERS Sodium Chloride 10 ml 11/18/19 17:00 11/20/19 00:36 Normal Saline Flush 0.9% IVP Not Given 0100,0900,1700 NANETTE - Lab Result Fish Bone Diagrams: 11/20/19 08:35 11/20/19 04:50 - Additional Planning My Orders: My Active Orders 11/19/19 09:00 cefTRIAXone [Rocephin] 1 gm Sodium Chloride 0.9% Minibag [Normal Saline 0.9% Minibag] 100 ml IV DAILY 11/19/19 10:11 Miscellaenous Nursing Order [RC] QSHIFT Orthostatic [Vital Signs - Orthostatic] [RC] DAILY 11/19/19 11:00 Aspirin EC [Ecotrin] 325 mg PO DAILY 11/19/19 Lunch DIET [Soft Mechanical Diet] [DIET] 11/20/19 09:00 [place]-3 Acid Ethyl Esters [Lovaza] 1 gm PO DAILY 11/21/19 05:00 BMP - BASIC METABOLIC PANEL [CHEM] DAILYLAB CBC - COMP BLD CT W/AUTO DIFF [HEME] DAILYLAB 11/22/19 05:00 BMP - BASIC METABOLIC PANEL [CHEM] DAILYLAB CBC - COMP BLD CT W/AUTO DIFF [HEME] DAILYLAB Subjective - Subjective Patient Reports: Resting Comfortably, No Complaints Objective Vital Signs: Vital Signs - 24 hr 11/19/19 11/19/19 11/19/19 12:46 16:02 21:00 Temperature 36.5 C 36.5 C 36.5 C Heart Rate [ 95 100 Brachial] Heart Rate [ 99 Monitoring electrodes] Respiratory 20 18 18 Rate Blood Pressure 117/70 134/57 H 155/105 H [Right Brachial artery] O2 Saturation 100 98 100 11/19/19 11/20/19 23:45 04:15 Temperature 36.7 C 36.6 C Heart Rate [ Brachial] Heart Rate [ 99 96 Monitoring electrodes] Respiratory 16 16 Rate Blood Pressure 149/78 H 144/61 H [Right Brachial artery] O2 Saturation 97 96 Oxygen O2 Source Room air I&O (Last 24 Hrs): Intake and Output Totals x24h 11/18/19 11/19/19 11/20/19 23:59 23:59 23:59 Intake Total 575 2680.000 911.667 Output Total 400 750 Balance 575 2280.000 161.667 General: Alert HEENT: Mucous membr. moist/pink Neck: Supple Neuro: Alert, Other (Mild resting tremor of her lower jaw and right hand) Cardiovascular: Regular rate Respiratory: No respiratory distress Abdomen: Soft Extremities: No edema - Results Results: Laboratory Results WBC 8.9 x10^3/uL (4.8-10.8) 11/20/19 04:50 RBC 4.01 10^6/uL (4.20-5.40) L 11/20/19 04:50 Hgb 12.0 g/dL (12.0-16.0) 11/20/19 04:50 Hct 38.5 % (37.0-47.0) 11/20/19 04:50 MCV 96.0 fL (81.0-99.0) 11/20/19 04:50 MCH 29.9 pg (27.0-31.0) 11/20/19 04:50 MCHC 31.2 g/dL (32.0-36.0) L 11/20/19 04:50 RDW 13.5 % (12.0-15.0) 11/20/19 04:50 Plt Count 346 10^3/uL (130-450) 11/20/19 04:50 MPV 10.7 fL (7.9-10.8) 11/20/19 04:50 Neut # (Auto) 5.5 10^3/uL (1.5-6.6) 11/20/19 04:50 Lymph # (Auto) 1.7 10^3/uL (1.5-3.5) 11/20/19 04:50 [place] # (Auto) 0.8 10^3/uL (0.0-1.0) 11/20/19 04:50 Eos # (Auto) 0.9 10^3/uL (0.0-0.7) H 11/20/19 04:50 Baso # (Auto) 0.0 10^3/uL (0.0-0.1) 11/20/19 04:50 Absolute Nucleated RBC 0.00 x10^3/uL 11/20/19 04:50 Band Neuts % (Manual) STERILIZER OPERATOR 11/20/19 04:50 Abnorm Lymph % (Manual) STERILIZER OPERATOR 11/20/19 04:50 Nucleated RBC % 0.0 /100WBC 11/20/19 04:50 Neutrophils # (Manual) Not Reportable 11/20/19 04:50 Lymphocytes # (Manual) STERILIZER OPERATOR 11/20/19 04:50 Monocytes # (Manual) STERILIZER OPERATOR 11/20/19 04:50 Eosinophils # (Manual) STERILIZER OPERATOR 11/20/19 04:50 Basophils # (Manual) STERILIZER OPERATOR 11/20/19 04:50 Differential Comment MANUAL=AUTO DIFF 11/20/19 04:50 WBC Morphology NORMAL APPEARANCE (NORMAL) 11/20/19 04:50 Platelet Estimate NORMAL (130-450,000) (NORMAL) 11/20/19 04:50 Platelet Morphology NORMAL APPEARANCE (NORMAL) 11/20/19 04:50 RBC Morph Micro Appear NORMAL APPEARANCE (NORMAL) 11/20/19 04:50 Sodium 143 mmol/L (135-145) 11/20/19 04:50 Potassium 3.2 mmol/L (3.5-5.0) L 11/20/19 04:50 Chloride 112 mmol/L (101-111) H 11/20/19 04:50 Carbon Dioxide 24 mmol/L (21-32) 11/20/19 04:50 Anion Gap 7.0 (6-13) 11/20/19 04:50 BUN 8 mg/dL (6-20) 11/20/19 04:50 Creatinine 0.9 mg/dL (0.4-1.0) 11/20/19 04:50 Estimated GFR (MDRD) 61 (>89) L 11/20/19 04:50 Glucose 131 mg/dL (70-100) H 11/20/19 04:50 Calcium 9.1 mg/dL (8.5-10.3) 11/20/19 04:50 Magnesium 1.7 mg/dL (1.7-2.8) 11/19/19 04:35 Total Bilirubin 0.6 mg/dL (0.2-1.0) 11/18/19 14:14 AST 22 IU/L (10-42) 11/18/19 14:14 ALT 21 IU/L (10-60) 11/18/19 14:14 Alkaline Phosphatase 76 IU/L (42-121) 11/18/19 14:14 Total Creatine Kinase 33 IU/L (22-269) 11/18/19 14:14 Troponin I High Sens 7.7 ng/L (2.3-14.8) 11/18/19 14:14 Total Protein 8.4 g/dL (6.7-8.2) H 11/18/19 14:14 Albumin 3.6 g/dL (3.2-5.5) 11/18/19 14:14 Globulin 4.8 g/dL (2.1-4.2) H 11/18/19 14:14 Albumin/Globulin Ratio 0.8 (1.0-2.2) L 11/18/19 14:14 Triglycerides 192 mg/dL (-149) H 11/20/19 04:50 Cholesterol 162 mg/dL (-199) 11/20/19 04:50 LDL Cholesterol, Calc 93 mg/dL (-129) 11/20/19 04:50 VLDL Cholesterol 38 mg/dL 11/20/19 04:50 HDL Cholesterol 31 mg/dL (60-) L 11/20/19 04:50 LDL/HDL Ratio 3.0 (<4.4) 11/20/19 04:50 Cholesterol/HDL Ratio 5.2 (<4.4) 11/20/19 04:50 Lipase 56 U/L (22-51) H 11/19/19 04:35 Urine Color YELLOW 11/18/19 14:44 Urine Clarity HAZY (CLEAR) 11/18/19 14:44 Urine pH 6.0 PH (5.0-7.5) 11/18/19 14:44 Ur Specific [place] 1.020 (1.002-1.030) 11/18/19 14:44 Urine Protein NEGATIVE mg/dL (NEGATIVE) 11/18/19 14:44 Urine Glucose (UA) NEGATIVE mg/dL (NEGATIVE) 11/18/19 14:44 Urine Ketones NEGATIVE mg/dL (NEGATIVE) 11/18/19 14:44 Urine Occult Blood SMALL (NEGATIVE) H 11/18/19 14:44 Urine Nitrite POSITIVE (NEGATIVE) H 11/18/19 14:44 Urine Bilirubin NEGATIVE (NEGATIVE) 11/18/19 14:44 Urine Urobilinogen 0.2 (NORMAL) E.U./dL (NORMAL) 11/18/19 14:44 Ur Leukocyte Esterase LARGE (NEGATIVE) H 11/18/19 14:44 Urine RBC 0-5 /HPF (0-5) 11/18/19 14:44 Urine WBC >25 /HPF (0-5) H 11/18/19 14:44 Ur Squamous Epith Cells NONE SEEN (<= Few) 11/18/19 14:44 Urine Bacteria Many /HPF (None Seen) H 11/18/19 14:44 Ur Microscopic Review INDICATED 11/18/19 14:44 Urine Culture Comments INDICATED 11/18/19 14:44
[2019-11-20] MEDS: OMEGA-3 ACID ETHYL ESTERS 1 GM CAPSULE PO SCH (08:15)
[2019-11-20] MEDS ORDERED: LORazepam 2 MG/ML VIAL IVP PRN (08:19)
[2019-11-20 08:44] LABS: BASOPHILS # (AUTO) 0.1 10^3/uL (0.0-0.1); BASOPHILS % (AUTO) 0.5 %; EOSINOPHILS % (AUTO) 9.5 %; HGB - HEMOGLOBIN 13.6 g/dL (12.0-16.0); LYMPHOCYTES # (AUTO) 2.3 10^3/uL (1.5-3.5); LYMPHOCYTES % (AUTO) 21.5 %; MEAN CORPUSCULAR HEMOGLOBIN 30.2 pg (27.0-31.0); MEAN CORPUSCULAR HGB CONC 30.7 g/dL (32.0-36.0); MEAN CORPUSCULAR VOLUME 98.4 fL (81.0-99.0); MEAN PLATELET VOLUME 10.6 fL (7.9-10.8); MONOCYTES # (AUTO) 0.9 10^3/uL (0.0-1.0); MONOCYTES % (AUTO) 8.9 %; NEUTROPHILS # (AUTO) 6.2 10^3/uL (1.5-6.6); PLT - PLATELET COUNT 369 10^3/uL (130-450); RED CELL DISTRIBUTION WIDTH 13.6 % (12.0-15.0); WHITE BLOOD COUNT 10.5 x10^3/uL (4.8-10.8)
[2019-11-20] MEDS: POTASSIUM CHLORIDE 20 MEQ TABLET PO SCH (09:39)
[2019-11-20] MEDS: THIAMINE 100 MG TABLET PO SCH (09:39)
[2019-11-20] MEDS: D5NS W/20 MEQ KCL 1,000 ML IV SCH ×2 (09:41→20:02)
--- NOTE | 2019-11-20 12:33 | CONSULTATION NOTE ---
Referring Provider Consult Date: 11/20/19 Chief Complaint - Chief Complaint Chief Complaint: mild pain and swelling left wrist History of Present Illness - History Obtained From History obtained from: patient and nurse Exam Limitations: none - History of Present Illness HPI Comment/Other: This is a 79-year-old woman with a history of multiple falls but apparently no fractures. She was admitted with a urinary tract infection and was noted to have some pain and swelling to the distal left forearm with some difficulty moving her fingers of the left hand. I was asked to see the patient by the hospitalist today. Her pain is mild and she seems to be improving. She denies any previous problems to her left wrist, denies elbow pain. She does not have any neurologic or vascular symptoms. History - Past Medical History Neuro: reports: Tremors - POLST Patient has POLST: No Meds/Allgy - Home Medications Home Medications: Ambulatory Orders Medication Instructions Recorded Confirmed Allopurinol [Zyloprim] 300 mg PO DAILY 11/18/19 11/19/19 Aspirin [Aspirin EC] 325 mg PO DAILYWM PRN 11/18/19 11/19/19 Atenolol [Tenormin] 100 mg PO DAILY 11/18/19 11/19/19 - Allergies Allergies/Adverse Reactions: Allergies Allergy/AdvReac Type Severity Reaction Status Date / Time No Known Drug Allergies Allergy Verified 11/18/19 16:17 Exam - Vital Signs Vital Signs: Vital Signs x48h Temp Pulse Resp BP Pulse Ox 11/20/19 12:21 36.4 C L 96 18 126/59 L 99 11/20/19 08:34 36.6 C 94 24 162/63 H 99 - Physical Exam General Appearance: positive: No acute distress Peripheral Pulses: positive: 2+ Skin: positive: Color nml, Warm, Dry Extremities: negative: Joint swelling (She has mild swelling and mild localized tenderness to the distal radius left wrist. She has joint enlargement suggestive of some arthritis to the distal joints left hand and some inability to fully flex the fingers to the palmar crease on active basis but good passive motion. Tendon function is i) Neurologic/Psychiatric: positive: Oriented x3 Conclusion and Plan - Lab Results Microbiology Results 11/18/19 14:44 Urine,Catheterized Urine Culture - Final Escherichia Coli Laboratory Results 11/20/19 08:35: WBC 10.5, RBC 4.50, Hgb 13.6, Hct 44.3, MCV 98.4, MCH 30.2, MCHC 30.7 L, RDW 13.6, Plt Count 369, MPV 10.6, Neut # (Auto) 6.2, Lymph # (Auto) 2.3, [place] # (Auto) 0.9, Eos # (Auto) 1.0 H, Baso # (Auto) 0.1, Absolute Nucleated RBC 0.00, Nucleated RBC % 0.0 11/20/19 04:50: Triglycerides 192 H, Cholesterol 162, LDL Cholesterol, Calc 93, VLDL Cholesterol 38, HDL Cholesterol 31 L, LDL/HDL Ratio 3.0, Cholesterol/HDL Ratio 5.2 11/20/19 04:50: Sodium 143, Potassium 3.2 L, Chloride 112 H, Carbon Dioxide 24, Anion Gap 7.0, BUN 8, Creatinine 0.9, Estimated GFR (MDRD) 61 L, Glucose 131 H, Calcium 9.1 11/20/19 04:50: WBC 8.9, RBC 4.01 L, Hgb 12.0, Hct 38.5, MCV 96.0, MCH 29.9, MCHC 31.2 L, RDW 13.5, Plt Count 346, MPV 10.7, Neut # (Auto) 5.5, Lymph # (Auto) 1.7, [place] # (Auto) 0.8, Eos # (Auto) 0.9 H, Baso # (Auto) 0.0, Absolute Nucleated RBC 0.00, Band Neuts % (Manual) SALES ANALYST, Abnorm Lymph % (Manual) SALES ANALYST, Nucleated RBC % 0.0, Neutrophils # (Manual) Not Reportable, Lymphocytes # (Manual) SALES ANALYST, Monocytes # (Manual) SALES ANALYST, Eosinophils # (Manual) SALES ANALYST, Basophils # (Manual) SALES ANALYST, Differential Comment MANUAL=AUTO DIFF, WBC Morphology NORMAL APPEARANCE, Platelet Estimate NORMAL (130-450,000), Platelet Morphology NORMAL APPEARANCE, RBC Morph Micro Appear NORMAL APPEARANCE 11/19/19 04:35: Lipase 56 H 11/19/19 04:35: Sodium 142, Potassium 3.6, Chloride 111, Carbon Dioxide 23, Anion Gap 8.0, BUN 12, Creatinine 0.8, Estimated GFR (MDRD) 70 L, Glucose 123 H, Calcium 9.6, Magnesium 1.7 11/19/19 04:35: WBC 9.1, RBC 4.21, Hgb 12.3, Hct 40.4, MCV 96.0, MCH 29.2, MCHC 30.4 L, RDW 13.3, Plt Count 387, MPV 10.7, Neut # (Auto) 5.1, Lymph # (Auto) 2.2, [place] # (Auto) 0.8, Eos # (Auto) 0.8 H, Baso # (Auto) 0.1, Absolute Nucleated RBC 0.00, Nucleated RBC % 0.0 11/18/19 14:44: Urine Color YELLOW, Urine Clarity HAZY, Urine pH 6.0, Ur Specific [place] 1.020, Urine Protein NEGATIVE, Urine Glucose (UA) NEGATIVE, Urine Ketones NEGATIVE, Urine Occult Blood SMALL H, Urine Nitrite POSITIVE H, Urine Bilirubin NEGATIVE, Urine Urobilinogen 0.2 (NORMAL), Ur Leukocyte Esterase LARGE H, Urine RBC 0-5, Urine WBC >25 H, Ur Squamous Epith Cells NONE SEEN, Urine Bacteria Many H, Ur Microscopic Review INDICATED, Urine Culture Comments INDICATED 11/18/19 14:14: Troponin I High Sens 7.7 11/18/19 14:14: Sodium 142, Potassium 3.5, Chloride 105, Carbon Dioxide 26, Anion Gap 11.0, BUN 14, Creatinine 0.9, Estimated GFR (MDRD) 61 L, Glucose 139 H, Calcium 10.8 H, Total Bilirubin 0.6, AST 22, ALT 21, Alkaline Phosphatase 76, Total Creatine Kinase 33, Total Protein 8.4 H, Albumin 3.6, Globulin 4.8 H, Albumin/Globulin Ratio 0.8 L, Lipase 58 H 11/18/19 14:14: WBC 12.1 H, RBC 4.86, Hgb 14.6, Hct 46.0, MCV 94.7, MCH 30.0, MCHC 31.7 L, RDW 13.1, Plt Count 474 H, MPV 10.4, Neut # (Auto) 8.6 H, Lymph # (Auto) 1.8, [place] # (Auto) 0.9, Eos # (Auto) 0.7, Baso # (Auto) 0.1, Absolute Nucleated RBC 0.00, Nucleated RBC % 0.0 - Diagnostic Imaging Results Diagnostic Imaging Results: negative: Read independently (She does have osteopenia and a fracture cannot be excluded to the distal radius left wrist) - Plan Plan: Probable fracture left distal radius associated osteopenia I suggested a wrist brace and orthopedic follow-up as outpatient in the clinic within a week. She can exercise her fingers to prevent stiffness.
[2019-11-21 05:33] LABS: BASOPHILS # (AUTO) 0.1 10^3/uL (0.0-0.1); BASOPHILS % (AUTO) 0.5 %; EOSINOPHILS # (AUTO) 0.9 10^3/uL (0.0-0.7); EOSINOPHILS % (AUTO) 9.8 %; HGB - HEMOGLOBIN 11.4 g/dL (12.0-16.0); LYMPHOCYTES # (AUTO) 1.7 10^3/uL (1.5-3.5); LYMPHOCYTES % (AUTO) 17.3 %; MEAN CORPUSCULAR HEMOGLOBIN 29.4 pg (27.0-31.0); MEAN CORPUSCULAR HGB CONC 30.8 g/dL (32.0-36.0); MEAN CORPUSCULAR VOLUME 95.4 fL (81.0-99.0); MEAN PLATELET VOLUME 10.8 fL (7.9-10.8); MONOCYTES # (AUTO) 0.8 10^3/uL (0.0-1.0); NEUTROPHILS # (AUTO) 6.2 10^3/uL (1.5-6.6); PLT - PLATELET COUNT 300 10^3/uL (130-450); RED BLOOD COUNT 3.88 10^6/uL (4.20-5.40); RED CELL DISTRIBUTION WIDTH 13.5 % (12.0-15.0); WHITE BLOOD COUNT 9.6 x10^3/uL (4.8-10.8)
[2019-11-21 05:37] LABS: INR 1.1 (0.8-1.2); PT - PROTHROMBIN TIME 12.4 secs (9.9-12.6)
[2019-11-21 05:52] LABS: CALCIUM 8.8 mg/dL (8.5-10.3); CREATININE 1.1 mg/dL (0.4-1.0); MAGNESIUM 1.3 mg/dL (1.7-2.8)
[2019-11-21] MEDS: D5NS W/20 MEQ KCL 1,000 ML IV SCH ×2 (06:10→16:10)
[2019-11-21] MEDS: SODIUM CHLORIDE FLUSH 0.9% 10 ML SYRINGE IVP SCH ×3 (06:11→17:23)
[2019-11-21] MEDS: PANTOPRAZOLE 40 MG VIAL IVP SCH (06:37)
[2019-11-21] MEDS: SODIUM CHLORIDE FLUSH 0.9% 10 ML SYRINGE IVP PRN (06:38)
[2019-11-21] MEDS: POTASSIUM CHLORIDE 20 MEQ TABLET PO SCH (08:23)
[2019-11-21] MEDS: ASPIRIN EC 325 MG TABLET PO SCH (08:25)
[2019-11-21] MEDS: OMEGA-3 ACID ETHYL ESTERS 1 GM CAPSULE PO SCH (08:28)
[2019-11-21] MEDS: cephALEXin 250 MG CAPSULE PO SCH ×4 (09:51→20:47)
[2019-11-21] MEDS: THIAMINE 100 MG TABLET PO SCH (09:59)
[2019-11-21] MEDS ORDERED: SODIUM CHLORIDE 0.9% 500 ML IV ONE (11:15)
[2019-11-21] MEDS: SACCHAROMYCES BOULARDII 250 MG CAPSULE PO SCH (17:33)
--- NOTE | 2019-11-21 17:44 | CONSULTATION NOTE ---
Palliative Care Consultation - Referral Referring Provider: Bessy Venegas MD Time of Visit: 5088-0424 Referral setting: Hospitalized patient Referral Reason: Goals of Care/Dementia/FTT - Information Sources Records reviewed: Previous records reviewed, Other (reviewed notes of providers/conversations) History/Review of Systems obtained from: Patient Exam limitations: Clinical condition (patient presents with STM deficits; limited understanding of of current limitations) - History of Present Illness Brief History of Present Illness: This is a 79-year-old woman who was admitted on 11/17 after of fall at home. Th ere has been a variety of explanations and descriptions of patient's status prior to admit, as well as patient's limitations and concern for being able to meet patient's increased care needs at home. Patient herself presents sitting in chair, did take some time to set rapport, as she had just finished with the therapist. Patient reports she had hurt her wrist 2 to 3 weeks ago, this is been fairly consistent, and has limited her abilities and possibly has added to her decline. Patient has very little insight into her current limitations or conditions. Patient does understand she is in the hospital as a result of a fall, she does understand she has a urinary tract infection and is getting treated, and does admit that she has been fairly sedentary and bedbound for a long period of time. When trying to tease out what this meant, she reports "I was fine and then I was not". I had asked her if she thought maybe she had a stroke at some time, she reports that has been postulated. 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 She does admit that he has been taking care of her, and has been helping her to the bathroom, that she has not been independent in this. She could not tell me how she was bathing other than it was happening. She does know she has a salesperson household appliances, that comes on Thursday, but we discussed most likely and she admits she does not do personal care. She is very adamant in our conversation that she does not want to go to a penitentiary for "tune up". I suspect this was language used with her. She did agree that she was limited with her pain in her left wrist. Patient was non-ambulatory other than with 2 person assist, and had difficulty with cues. Patient also presented on her cognitive eval 21 out of 30 indicating mild to moderate cognitive decline. She does admit she has been having some falls, she reports her was in good health, and very much wants to go home. Review of her records, does appear she has hypertension, she has not sought medical care, as when she was a nurse she always had "doctors around". She reports she has been fairly healthy up to this point, could not recall any diagnoses. Though she does admit to presenting with tremors upper extremity, the last few months, and has been eating less, but does not feel like she has lost weight. She denies any pain at baseline other than her new left wrist pain, and agrees that she is most likely depressed, "who wouldn't be" . Medical/Surgical History - Past Medical History Cardiovascular: reports: Hypertension Neuro: Tremors : reports: Renal insuffiency Psych: reports: Depression - Substance History Use: Uses substance without health or social issues: Tobacco (hx of smoking; quit 20 years ago) Social History - Living Situation Living arrangement: At home Living Situation: With spouse/s.o. Support System: Patient lives at home with her , Kevin, who does prepare meals for her and has been helping her with her declining functional status. Patient does admit that she is probably too much for him, there has been some question about 's ability to care for patient with increased care needs. Notes reflect son has been trying to get caregiving in place but she has been resistant. Family History - Family History Family History: Mother: , Father: Medications/Allergies - Medications Active Medication List: Active Medications Aspirin (Ecotrin) 325 mg PO DAILY [facility] Last Admin: 11/21/19 08:25 Dose: 325 mg Documented by: Cephalexin (Keflex) 250 mg PO QID [facility] Last Admin: 11/21/19 17:33 Dose: 250 mg Documented by: Potassium Chloride/Dextrose/Sod Cl () 1,000 mls @ 100 mls/hr IV .Q10H [facility] Last Admin: 11/21/19 16:10 Dose: 100 mls/hr Documented by: Lorazepam (Ativan Inj (Vial)) 1 mg IVP Q30M PRN; Protocol PRN Reason: CIWA >8 Prwvx-[id number] Ethyl Esters (Lovaza) 1 gm PO DAILY [facility] Last Admin: 11/21/19 08:28 Dose: 1 gm Documented by: Ondansetron HCl (Zofran Inj) 4 mg IVP Q6HR PRN PRN Reason: Nausea / Vomiting Pantoprazole Sodium (Protonix) 40 mg IVP QDAC [facility] Last Admin: 11/21/19 06:37 Dose: 40 mg Documented by: Potassium Chloride (K-Dur) 20 meq PO DAILYWM [facility] Last Admin: 11/21/19 08:23 Dose: 20 meq Documented by: Saccharomyces Boulardii (Florastor) 250 mg PO BIDWM [facility] Last Admin: 11/21/19 17:33 Dose: 250 mg Documented by: Sodium Chloride (Normal Saline Flush 0.9%) 10 ml IVP PRN PRN PRN Reason: NEEDED PER PROVIDER ORDERS Last Admin: 11/21/19 06:38 Dose: 10 ml Documented by: Sodium Chloride (Normal Saline Flush 0.9%) 10 ml IVP 0100,0900,1700 [facility] Last Admin: 11/21/19 17:23 Dose: Not Given Documented by: Thiamine HCl (Vitamin B-1) 100 mg PO DAILY [facility] Last Admin: 11/21/19 09:59 Dose: 100 mg Documented by: Allopurinol [Zyloprim] 300 mg PO DAILY 11/18/19 Aspirin [Aspirin EC] 325 mg PO DAILYWM PRN 11/18/19 Atenolol [Tenormin] 100 mg PO DAILY 11/18/19 - Allergies Allergies/Adverse Reactions: Allergies Allergy/AdvReac Type Severity Reaction Status Date / Time No Known Drug Allergies Allergy Verified 11/18/19 16:17 Review of Systems - Constitutional Constitutional: reports: Fatigue. denies: Fever - Cardiovascular Cardiovascular: reports: Exertional dyspnea, Decr. exercise tolerance. denies: Chest pain, Edema - Respiratory Respiratory: reports: Cough, SOB with exertion. denies: SOB at rest - Gastrointestinal Gastrointestinal: reports: Diarrhea (on admit inc of stool), Early satiety - Genitourinary Genitourinary: reports: Incontinence (mild per patient "just starting"; documented in records concerns of incontinence) - Musculoskeletal Musculoskeletal: reports: Stiffness, Limited range of motion, Joint swelling (left wrist with pain), Transfer issues (max assist) - Integumentary Integumentary: reports: Dryness, Other (no other signs of skin issues given report of incontinence) - Neurological Neurological: reports: General weakness, Memory problems - Psychiatric Psychiatric: reports: Depression - Hematologic/Lymphatic Hematologic/Lymphatic: reports: Recurrent infections (denie previous infections;) - All Other Systems All Other Systems: reports: Other (limited ROS) Physical Exam - Vital Signs Vital Signs: Vital Signs x48h Temp Pulse Pulse Pulse Pulse Pulse Resp 11/21/19 16:00 36.5 C 99 18 11/21/19 11:30 103 H 103 H 103 H 11/21/19 11:21 36.7 C 76 17 BP BP BP BP Pulse Ox 11/21/19 16:00 163/73 H 100 11/21/19 11:30 147/64 H 147/64 H 170/71 H 11/21/19 11:21 142/64 H 94 - Physical Exam General Appearance: positive: Alert, Other (irritatable) Eyes Bilateral: positive: Normal inspection ENT: positive: No signs of dehydration Neck: positive: Trachea midline Cardiovascular: positive: Tachycardia Respiratory: positive: No respiratory distress, Diminished in bases. negative: Wheezes Abdomen: positive: Non-tender, Soft Skin: positive: Pallor, Dryness Extremities: positive: No pedal edema Neurologic/Psychiatric: positive: Disoriented to place (knows in hospital), Disoriented to time, Weakness, Depressed mood/affect, Flat affect Palliative Care - POLST Patient has POLST: No Pain: Pain worsening, Location (wrist; tenderness and discomfort even at rest) Feelings of wellbeing/Perceived Quality of Life: Fair, Worsening, Comment (patient not happy with current quality of life; though cannot provide information what would be better or why it is declining) Performance Status: It is difficult to discern how quickly patient has had decline in quality of life, whether it is been over the last few weeks with her acute fall, more quickly, or more steadily over the year. Patient currently though with therapy is needing moderate assist and 2 person assist. Patient does admit at baseline does need assistance back and forth to the bathroom by her , will try and get a clear picture from family meeting tomorrow. - Palliative Care Discussion: Patient does have advanced directives scanned in, these were done 01/2008. These essentially are somewhat generalized, that do reflect for her living will if she has a terminal condition, to allow natural this becomes more problematic when we talk about the trajectory of dementia, and failure to thrive. It is unclear how much the family understands as far as her current disease trajectory, what might be expected in the future, and it is problematic in the context they have no current primary care provider. Though she is willing to see someone, she refers a woman and someone local. When asked how she is feeling about this she reports "I am surprised that I got old", she is depressed that she is less able to do anything. She perceives that she was "fine and then was not". Is unable to really reflect on how she is gotten where she is. When asked if she advanced directive she said yes, we discussed in context of this if she had any concerns regarding her own health, including asking her around fears of dying. She reflected back to me that boat she has been thinking about this and lately it occurs to her she could". Did try and reflect back if there was any concerns or worries as she did get older and things were changing and concerned about her health as well, they have been 60 years, but is unable to bring any insight into this conversation. We did discuss given her current pain in her wrist, and weakness my worries about her being at home. She is very much clear that the suggestion has been for some kind of placement in a home, she is very much against this. We discussed that she think she would benefit from some support or help at home and getting "tuned up" with home health physical therapy and support. She did feel this might be okay but "not right away", we discussed that usually takes him a few days anyway. Did discuss temporarily at least getting some help, for Kevin and helping care for her. As the nurses have been doing quite a bit, and she does need quite a bit help because of her wrist right now. She did acquiesce that this might be a good idea. Follow-up with clinical social worker Ravindra, has been in contact with son Matt. Feeling like needs to have a family conference regarding patient's needs and ability to meet them at the home setting. Agreed would meet tomorrow afternoon, will call son in a.m., to get further information lay of the land n preparation for family conference at [phone]. Plan is for patient to discharge either tomorrow or Thursday, it is evident they will need more help at least for the short-term as patient is not back to baseline and concern where "new normal will land". Results - Lab Results Lab results reviewed: Yes Fish Bones: 11/21/19 05:03 11/21/19 05:03 Lab and Imaging Results: Lab Results x24hrs 11/21/19 11/21/19 11/21/19 Range/Units 05:03 05:03 05:03 WBC 9.6 (4.8-10.8) x10^3/uL RBC 3.88 L (4.20-5.40) 10^6/uL Hgb 11.4 L (12.0-16.0) g/dL Hct 37.0 (37.0-47.0) % MCV 95.4 (81.0-99.0) fL MCH 29.4 (27.0-31.0) pg MCHC 30.8 L (32.0-36.0) g/dL RDW 13.5 (12.0-15.0) % Plt Count 300 (130-450) 10^3/uL MPV 10.8 (7.9-10.8) fL Neut # (Auto) 6.2 (1.5-6.6) 10^3/uL Lymph # (Auto) 1.7 (1.5-3.5) 10^3/uL [place] # (Auto) 0.8 (0.0-1.0) 10^3/uL Eos # (Auto) 0.9 H (0.0-0.7) 10^3/uL Baso # (Auto) 0.1 (0.0-0.1) 10^3/uL Absolute Nucleated RBC 0.00 x10^3/uL Nucleated RBC % 0.0 /100WBC PT 12.4 (9.9-12.6) secs INR 1.1 (0.8-1.2) Sodium 141 (135-145) mmol/L Potassium 3.7 (3.5-5.0) mmol/L Chloride 111 (101-111) mmol/L Carbon Dioxide 23 (21-32) mmol/L Anion Gap 7.0 (6-13) BUN 8 (6-20) mg/dL Creatinine 1.1 H (0.4-1.0) mg/dL Estimated GFR (MDRD) 48 L (>89) Glucose 138 H (70-100) mg/dL Calcium 8.8 (8.5-10.3) mg/dL Magnesium 1.3 L (1.7-2.8) mg/dL GGT 38 (8-38) IU/L Lipase 59 H (22-51) U/L Impression and Recommendations - Palliative Care Impression: This is a 79-year-old woman who presents with 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 Given patient's history and persistent hypertension, and concerns may have history of stroke. Patient has had what appears to be a slow steady cognitive decline, and more of an acute functional decline imposed on a slow functional decline. Expressed concerns by clinical staff and interactions, with patient and , for ability to meet her care needs with her current level of functioning at home. Patient's goals are to return home, but has little insight into the seriousness of her illness, palliative care to tease out goals and transition in the context of these goals with family. Recommendations/Counseling Done: 1. Mild to moderate dementia. Patient has had peers ongoing cognitive decline, presents with short-term memory issues, little insight to her current limitations, and concerns for safety and as well failure to thrive. Plan for family meeting, to evaluate current situation and immediate needs, versus long- term planning. Patient does not have a local primary care provider, will need to establish LOUIE, but then could be followed by palliative care on an outpatient basis for further anticipatory guidance. 2. Depression. Patient does report persistent depressive feelings, feelings of being overwhelmed, apathy and listlessness. Patient may benefit from initiating low-dose antidepressant, would recommend citalopram, as this also helps sometimes with neuropsychiatric behaviors related to dementia. Would recommend starting citalopram at 10 mg daily. 3. Hypertension. Patient has not had any treatment for hypertension, given most likely this is underlying vascular dementia, would benefit from appropriately treated hypertension and follow-up with primary care. 4. Left wrist pain. Patient does have significant discomfort, would recommend initiating acetaminophen 1000 mg 3 times daily for comfort, this may improve her willingness to work with therapy as well. 5. Advanced care planning. Patient's short-term goals are to return home, concern certainly expressed regarding ability to do this safely. Patient does have and son who have expressed interest in supporting patient in transitioning home. Will need most likely a short-term caregiving plan to meet her immediate needs, patient is quite adamant and against placement, would benefit from paid caregiving support. Would also recommend physical therapy for transfer training, equipment evaluation, and safety issues. Will explore willingness to hire help, but also would initiate OT and home health aide as well as [employer] from home health team to better evaluate and transition patient back into home setting with a safe plan. Time Spent: 75 minutes with greater than 50% of this done in counseling with patient regarding setting of rapport, coordination of care with hospital team, plan for family meeting tomorrow afternoon, will follow up with Matt first thing in the morning though to set this stage as far as setting goals for family meeting.
--- NOTE | 2019-11-21 19:09 | PROVIDER PROGRESS NOTE ---
Assessment/Plan - Problem List (1) Orthostatic hypotension Assessment/Plan: When it was safe to get her out of bed (after several days of iv hydration), she had orthostatic vital signs being checked every morning. She has had 25-30 mmHg systolic drop in blood pressure She has needed saline fluid bolus of 500 cc She may need Midodrine or Florinef started, depending on her fluid status in the next few days. Orthostatic VS checks ordered for daily (in am) She is not yet ready for discharge. (2) E. coli UTI Assessment/Plan: The urine E coli sensitivities are pending to guide transition to oral therapy. (3) Dementia Qualifiers: Dementia type: Alzheimer's disease Assessment/Plan: After a long Advance Care Plan meeting several days ago, between myself, the son, and patient, it was learned that she has not gotten out of her bed for nearly a year, is incontinent of urine and stool in her mattress for 1 year and the just throws out and changes the covers, she has not walked or gone downstairs in their house for about a year, she has taken no medications for 5-10 years, has not been to a provider for about 10 years, therefore it is unknown if she had hypertension or hyperlipidemia for example. Upon presentation to the ER, it was reported to me that she was covered in dried feces. Social Work consult was requested for placement, or arranging for intermediate caregivers, and an APS report was filed. 1 aspirin daily has been started, since she had diffuse ischemic changes on head CT, consistent with dementia. Will treat the high lipids (triglycerides) as below. The son Matt and were informed that it is not a safe discharge to return back to her daily life the way it was as described above; she will need more caregivers for care. The has shown evidence that he also has severe memory problems (during the ACP), and he is listed as her DPOA in the legal paperwork. The 2 sons are listed as the alternate and shared DPOA's. There may need to be official determination of the 's decisional capacity going forward. For assistance in all of this, a Palliative Care consult was requested, Ping Riley NP to see her today>> a family meeting plus Palliative Care and Maintenance Instructor, is scheduled for 3:30 pm tomorrow. (4) Fall at home Assessment/Plan: This event was a roll out of bed. The had reported she has had prior falls. Also, he noticed she wasn't using the L arm as much as usual for about a week and thought it was weak, but the patient reported it was painful. A fracture of te distal radius has been found, and may have been caused by a fall occurring about a week ago, therefore. (5) Fracture of left radius Assessment/Plan: Orthopedic consult appreciated, a wrist brace was advised. The patient at first refused the brace, but several hours later it was simply applied without questioning if she wanted it, by her RN. (6) Elevated lipase Assessment/Plan: Abd/pelvis imaging showed no pancreatic abnormality. The pt did confirm she drinks alcohol. Possibly chronic mild pancreatitis present. (7) Hypertriglyceridemia Assessment/Plan: [place] 3 started as treatment (8) Hypokalemia Assessment/Plan: Resolving with replacement. Follow BMP daily. (9) Noncompliance Assessment/Plan: As described in #3 - Current Meds Current Meds: Current Medications Generic Name Dose Route Start Last Admin Trade Name Maicolq PRN Reason Stop Dose Admin Aspirin 325 mg 11/19/19 11:00 11/21/19 08:25 Ecotrin PO 325 mg DAILY NANETTE Administration Cephalexin 250 mg 11/21/19 09:00 11/21/19 17:33 Keflex PO 250 mg QID NANETTE Administration Potassium Chloride/Dextrose/Sod Cl 1,000 mls @ 100 mls/hr 11/20/19 09:00 11/21/19 16:10 IV 100 mls/hr .Q10H NANETTE Administration [id number] Ethyl Esters 1 gm 11/20/19 09:00 11/21/19 08:28 Lovaza PO 1 gm DAILY NANETTE Administration Pantoprazole Sodium 40 mg 11/19/19 07:00 11/21/19 06:37 Protonix IVP 40 mg QDAC NANETTE Administration Potassium Chloride 20 meq 11/20/19 08:34 11/21/19 08:23 K-Dur PO 20 meq DAILYWM NANETTE Administration Saccharomyces Boulardii 250 mg 11/21/19 17:00 11/21/19 17:33 Florastor PO 250 mg BIDWM NANETTE Administration Sodium Chloride 10 ml 11/18/19 15:48 11/21/19 06:38 Normal Saline Flush 0.9% IVP 10 ml PRN PRN Administration NEEDED PER PROVIDER ORDERS Sodium Chloride 10 ml 11/18/19 17:00 11/21/19 17:23 Normal Saline Flush 0.9% IVP Not Given 0100,0900,1700 NANETTE Thiamine HCl 100 mg 11/20/19 09:00 11/21/19 09:59 Vitamin B-1 PO 100 mg DAILY NANETTE Administration - Lab Result Fish Bone Diagrams: 11/22/19 05:24 11/22/19 05:24 - Additional Planning My Orders: My Active Orders 11/21/19 Evaluate and Treat PT [PT] Routine 11/21/19 09:00 cephALEXin [Keflex] 250 mg PO QID 11/21/19 16:22 Echo Complete w/Bubble Study [ECHO] Routine 11/21/19 17:00 Saccharomyces Boulardii [Florastor] 250 mg PO BIDWM 11/22/19 05:00 BMP - BASIC METABOLIC PANEL [CHEM] DAILYLAB CBC - COMP BLD CT W/AUTO DIFF [HEME] DAILYLAB LIPASE [CHEM] DAILYLAB Subjective - Subjective Patient Reports: Resting Comfortably, No Complaints Objective Vital Signs: Vital Signs - 24 hr 11/20/19 11/20/19 11/21/19 21:00 23:55 05:15 Temperature 36.6 C 36.7 C 36.7 C Heart Rate [ Activity] Heart Rate [ 101 H Brachial] Heart Rate [ 96 99 Monitoring electrodes] Heart Rate [ Sitting] Heart Rate [ Supine] Respiratory 20 16 16 Rate Blood Pressure [Activity] Blood Pressure 153/77 H 158/54 H 161/79 H [Right Brachial artery] Blood Pressure [Sitting] Blood Pressure [Supine] O2 Saturation 97 99 97 11/21/19 11/21/19 11/21/19 08:04 11:21 11:30 Temperature 36.9 C 36.7 C Heart Rate [ 103 H Activity] Heart Rate [ Brachial] Heart Rate [ 93 76 Monitoring electrodes] Heart Rate [ 103 H Sitting] Heart Rate [ 103 H Supine] Respiratory 17 17 Rate Blood Pressure 147/64 H [Activity] Blood Pressure 149/59 H 142/64 H [Right Brachial artery] Blood Pressure 147/64 H [Sitting] Blood Pressure 170/71 H [Supine] O2 Saturation 99 94 11/21/19 11/21/19 16:00 18:15 Temperature 36.5 C Heart Rate [ Activity] Heart Rate [ 99 91 Brachial] Heart Rate [ Monitoring electrodes] Heart Rate [ Sitting] Heart Rate [ Supine] Respiratory 18 Rate Blood Pressure [Activity] Blood Pressure 163/73 H 153/59 H [Right Brachial artery] Blood Pressure [Sitting] Blood Pressure [Supine] O2 Saturation 100 Oxygen O2 Source Room air I&O (Last 24 Hrs): Intake and Output Totals x24h 11/19/19 11/20/19 11/21/19 23:59 23:59 23:59 Intake Total 2680.000 3690.000 2825 Output Total 400 1575 1500 Balance 2280.000 2115.000 1325 General: Alert HEENT: Atraumatic, Mucous membr. moist/pink Neck: Supple, No JVD Neuro: Alert, Disoriented Cardiovascular: Regular rate Respiratory: No respiratory distress Abdomen: Soft Extremities: No edema - Results Results: Laboratory Results WBC 9.6 x10^3/uL (4.8-10.8) 11/21/19 05:03 RBC 3.88 10^6/uL (4.20-5.40) L 11/21/19 05:03 Hgb 11.4 g/dL (12.0-16.0) L 11/21/19 05:03 Hct 37.0 % (37.0-47.0) 11/21/19 05:03 MCV 95.4 fL (81.0-99.0) 11/21/19 05:03 MCH 29.4 pg (27.0-31.0) 11/21/19 05:03 MCHC 30.8 g/dL (32.0-36.0) L 11/21/19 05:03 RDW 13.5 % (12.0-15.0) 11/21/19 05:03 Plt Count 300 10^3/uL (130-450) 11/21/19 05:03 MPV 10.8 fL (7.9-10.8) 11/21/19 05:03 Neut # (Auto) 6.2 10^3/uL (1.5-6.6) 11/21/19 05:03 Lymph # (Auto) 1.7 10^3/uL (1.5-3.5) 11/21/19 05:03 Saline # (Auto) 0.8 10^3/uL (0.0-1.0) 11/21/19 05:03 Eos # (Auto) 0.9 10^3/uL (0.0-0.7) H 11/21/19 05:03 Baso # (Auto) 0.1 10^3/uL (0.0-0.1) 11/21/19 05:03 Absolute Nucleated RBC 0.00 x10^3/uL 11/21/19 05:03 Band Neuts % (Manual) PATIENT COORDINATOR 11/20/19 04:50 Abnorm Lymph % (Manual) PATIENT COORDINATOR 11/20/19 04:50 Nucleated RBC % 0.0 /100WBC 11/21/19 05:03 Neutrophils # (Manual) Not Reportable 11/20/19 04:50 Lymphocytes # (Manual) PATIENT COORDINATOR 11/20/19 04:50 Monocytes # (Manual) PATIENT COORDINATOR 11/20/19 04:50 Eosinophils # (Manual) PATIENT COORDINATOR 11/20/19 04:50 Basophils # (Manual) PATIENT COORDINATOR 11/20/19 04:50 Differential Comment MANUAL=AUTO DIFF 11/20/19 04:50 WBC Morphology NORMAL APPEARANCE (NORMAL) 11/20/19 04:50 Platelet Estimate NORMAL (130-450,000) (NORMAL) 11/20/19 04:50 Platelet Morphology NORMAL APPEARANCE (NORMAL) 11/20/19 04:50 RBC Morph Micro Appear NORMAL APPEARANCE (NORMAL) 11/20/19 04:50 PT 12.4 secs (9.9-12.6) 11/21/19 05:03 INR 1.1 (0.8-1.2) 11/21/19 05:03 Sodium 141 mmol/L (135-145) 11/21/19 05:03 Potassium 3.7 mmol/L (3.5-5.0) 11/21/19 05:03 Chloride 111 mmol/L (101-111) 11/21/19 05:03 Carbon Dioxide 23 mmol/L (21-32) 11/21/19 05:03 Anion Gap 7.0 (6-13) 11/21/19 05:03 BUN 8 mg/dL (6-20) 11/21/19 05:03 Creatinine 1.1 mg/dL (0.4-1.0) H 11/21/19 05:03 Estimated GFR (MDRD) 48 (>89) L 11/21/19 05:03 Glucose 138 mg/dL (70-100) H 11/21/19 05:03 Calcium 8.8 mg/dL (8.5-10.3) 11/21/19 05:03 Magnesium 1.3 mg/dL (1.7-2.8) L 11/21/19 05:03 Total Bilirubin 0.6 mg/dL (0.2-1.0) 11/18/19 14:14 GGT 38 IU/L (8-38) 11/21/19 05:03 AST 22 IU/L (10-42) 11/18/19 14:14 ALT 21 IU/L (10-60) 11/18/19 14:14 Alkaline Phosphatase 76 IU/L (42-121) 11/18/19 14:14 Total Creatine Kinase 33 IU/L (22-269) 11/18/19 14:14 Troponin I High Sens 7.7 ng/L (2.3-14.8) 11/18/19 14:14 Total Protein 8.4 g/dL (6.7-8.2) H 11/18/19 14:14 Albumin 3.6 g/dL (3.2-5.5) 11/18/19 14:14 Globulin 4.8 g/dL (2.1-4.2) H 11/18/19 14:14 Albumin/Globulin Ratio 0.8 (1.0-2.2) L 11/18/19 14:14 Triglycerides 192 mg/dL (-149) H 11/20/19 04:50 Cholesterol 162 mg/dL (-199) 11/20/19 04:50 LDL Cholesterol, Calc 93 mg/dL (-129) 11/20/19 04:50 VLDL Cholesterol 38 mg/dL 11/20/19 04:50 HDL Cholesterol 31 mg/dL (60-) L 11/20/19 04:50 LDL/HDL Ratio 3.0 (<4.4) 11/20/19 04:50 Cholesterol/HDL Ratio 5.2 (<4.4) 11/20/19 04:50 Lipase 59 U/L (22-51) H 11/21/19 05:03 Urine Color YELLOW 11/18/19 14:44 Urine Clarity HAZY (CLEAR) 11/18/19 14:44 Urine pH 6.0 PH (5.0-7.5) 11/18/19 14:44 Ur Specific [place] 1.020 (1.002-1.030) 11/18/19 14:44 Urine Protein NEGATIVE mg/dL (NEGATIVE) 11/18/19 14:44 Urine Glucose (UA) NEGATIVE mg/dL (NEGATIVE) 11/18/19 14:44 Urine Ketones NEGATIVE mg/dL (NEGATIVE) 11/18/19 14:44 Urine Occult Blood SMALL (NEGATIVE) H 11/18/19 14:44 Urine Nitrite POSITIVE (NEGATIVE) H 11/18/19 14:44 Urine Bilirubin NEGATIVE (NEGATIVE) 11/18/19 14:44 Urine Urobilinogen 0.2 (NORMAL) E.U./dL (NORMAL) 11/18/19 14:44 Ur Leukocyte Esterase LARGE (NEGATIVE) H 11/18/19 14:44 Urine RBC 0-5 /HPF (0-5) 11/18/19 14:44 Urine WBC >25 /HPF (0-5) H 11/18/19 14:44 Ur Squamous Epith Cells NONE SEEN (<= Few) 11/18/19 14:44 Urine Bacteria Many /HPF (None Seen) H 11/18/19 14:44 Ur Microscopic Review INDICATED 11/18/19 14:44 Urine Culture Comments INDICATED 11/18/19 14:44
[2019-11-22] MEDS: ACETAMINOPHEN 325 MG TABLET PO PRN ×3 (01:24→17:45)
[2019-11-22] MEDS: D5NS W/20 MEQ KCL 1,000 ML IV SCH ×3 (01:28→22:18)
[2019-11-22] MEDS: SODIUM CHLORIDE FLUSH 0.9% 10 ML SYRINGE IVP SCH ×3 (01:30→17:46)
[2019-11-22 06:03] LABS: BASOPHILS % (AUTO) 0.4 %; EOSINOPHILS % (AUTO) 12.8 %; HGB - HEMOGLOBIN 11.4 g/dL (12.0-16.0); LYMPHOCYTES % (AUTO) 19.8 %; MEAN CORPUSCULAR HEMOGLOBIN 30.2 pg (27.0-31.0); MEAN CORPUSCULAR HGB CONC 31.8 g/dL (32.0-36.0); MEAN CORPUSCULAR VOLUME 94.7 fL (81.0-99.0); MEAN PLATELET VOLUME 10.8 fL (7.9-10.8); NEUTROPHILS % (AUTO) 58.6 %; PLT - PLATELET COUNT 286 10^3/uL (130-450); RED BLOOD COUNT 3.78 10^6/uL (4.20-5.40); RED CELL DISTRIBUTION WIDTH 13.4 % (12.0-15.0); WHITE BLOOD COUNT 9.1 x10^3/uL (4.8-10.8)
[2019-11-22] MEDS: SODIUM CHLORIDE FLUSH 0.9% 10 ML SYRINGE IVP PRN ×2 (06:07→06:10)
[2019-11-22] MEDS: PANTOPRAZOLE 40 MG VIAL IVP SCH (06:07)
[2019-11-22 06:08] LABS: ABNORMAL LYMPHS % (MANUAL) 0 %; BAND NEUTROPHILS % (MANUAL) 0 %
[2019-11-22 06:09] LABS: CALCIUM 8.6 mg/dL (8.5-10.3); CREATININE 0.7 mg/dL (0.4-1.0)
[2019-11-22 06:23] LABS: BASOPHILS # (MANUAL) 0.2 10^3/uL (0-0.1); BASOPHILS % (MANUAL) 2 %; DIFFERENTIAL COMMENT MANUAL DIFFERENTIAL; LYMPHOCYTES # (MANUAL) 1.5 10^3/uL (1.5-3.5); LYMPHOCYTES % (MANUAL) 17 %; MONOCYTES # (MANUAL) 0.5 10^3/uL (0.0-1.0); PLATELET ESTIMATE, MANUAL NORMAL (130-450,000) (NORMAL); PLATELET MORPHOLOGY NORMAL APPEARANCE (NORMAL); RBC MORPHOLOGY (MULTIPLE) NORMAL APPEARANCE (NORMAL)
[2019-11-22] MEDS: ASPIRIN EC 325 MG TABLET PO SCH (09:35)
[2019-11-22] MEDS: SACCHAROMYCES BOULARDII 250 MG CAPSULE PO SCH ×2 (09:35→17:45)
[2019-11-22] MEDS: POTASSIUM CHLORIDE 20 MEQ TABLET PO SCH (09:36)
[2019-11-22] MEDS: THIAMINE 100 MG TABLET PO SCH (09:36)
[2019-11-22] MEDS: cephALEXin 250 MG CAPSULE PO SCH ×4 (09:36→20:43)
[2019-11-22] MEDS: OMEGA-3 ACID ETHYL ESTERS 1 GM CAPSULE PO SCH (09:36)
--- NOTE | 2019-11-22 11:40 | PROVIDER PROGRESS NOTE ---
Subjective - Prog Note Date Prog Note Date: 11/22/19 Prog Note Time: 11:35 - Subjective Pt reports feeling: Improved Subjective: Laura lady. Asked me how I am doing. Comments that we had a great couple coffee last month. Unfortunately this is the first time I am meeting her. She is convinced that she knows me in her life. Otherwise she has no complaints. She denies chest pain, palpitations. Says that breakfast was good. Current Medications - Current Medications Current Medications: Active Medications Acetaminophen (Tylenol) 650 mg PO Q4HR PRN PRN Reason: Pain or Fever > 38C (100.4F) Last Admin: 11/22/19 09:37 Dose: 650 mg Documented by: Aspirin (Ecotrin) 325 mg PO DAILY [facility] Last Admin: 11/22/19 09:35 Dose: 325 mg Documented by: Cephalexin (Keflex) 250 mg PO QID [facility] Last Admin: 11/22/19 09:36 Dose: 250 mg Documented by: Potassium Chloride/Dextrose/Sod Cl () 1,000 mls @ 100 mls/hr IV .Q10H [facility] Last Admin: 11/22/19 01:28 Dose: 100 mls/hr Documented by: Lorazepam (Ativan Inj (Vial)) 1 mg IVP Q30M PRN; Protocol PRN Reason: CIWA >8 [id number]-[id number] Ethyl Esters (Lovaza) 1 gm PO DAILY [facility] Last Admin: 11/22/19 09:36 Dose: 1 gm Documented by: Ondansetron HCl (Zofran Inj) 4 mg IVP Q6HR PRN PRN Reason: Nausea / Vomiting Pantoprazole Sodium (Protonix) 40 mg IVP QDAC [facility] Last Admin: 11/22/19 06:07 Dose: 40 mg Documented by: Potassium Chloride (K-Dur) 20 meq PO DAILYWM [facility] Last Admin: 11/22/19 09:36 Dose: 20 meq Documented by: Saccharomyces Boulardii (Florastor) 250 mg PO BIDWM [facility] Last Admin: 11/22/19 09:35 Dose: 250 mg Documented by: Sodium Chloride (Normal Saline Flush 0.9%) 10 ml IVP PRN PRN PRN Reason: NEEDED PER PROVIDER ORDERS Last Admin: 11/22/19 06:10 Dose: 10 ml Documented by: Sodium Chloride (Normal Saline Flush 0.9%) 10 ml IVP 0100,0900,1700 [facility] Last Admin: 11/22/19 09:37 Dose: Not Given Documented by: Thiamine HCl (Vitamin B-1) 100 mg PO DAILY [facility] Last Admin: 11/22/19 09:36 Dose: 100 mg Documented by: Allopurinol [Zyloprim] 300 mg PO DAILY 11/18/19 Aspirin [Aspirin EC] 325 mg PO DAILYWM PRN 11/18/19 Atenolol [Tenormin] 100 mg PO DAILY 11/18/19 Objective - Vital Signs/Intake & Output Reviewed Vital Signs: Yes Vital Signs: Vital Signs x48h Temp Pulse Resp BP Pulse Ox 11/22/19 08:19 36.3 C L 83 18 153/67 H 97 11/22/19 05:49 36.6 C 87 18 156/66 H 97 Intake & Output: Intake & Output 11/19/19 11/20/19 11/21/19 11/22/19 23:59 23:59 23:59 23:59 Intake Total 2680.000 3690.000 3125 1170 Output Total 400 1575 2600 1050 Balance 2280.000 2115.000 525 120 - Objective General Appearance: positive: No acute distress, Alert Eyes Bilateral: positive: PERRL ENT: positive: No signs of dehydration Neck: positive: No JVD. negative: Stiff neck Respiratory: positive: Chest non-tender, No respiratory distress. negative: Wheezes, Rales, Rhonchi Cardiovascular: positive: Regular rate & rhythm, Systolic murmur. negative: Gallop/S4, Friction rub Abdomen: positive: Non-tender, No organomegaly, Nml bowel sounds, No distention Extremities: positive: Full ROM (Except for the left arm. That is held close to her body with a sling), No pedal edema (She does have thick ankles, but there is no pitting edema.) Neurologic/Psychiatric: positive: CN's nml (2-12), Motor nml, Disoriented to person, Disoriented to place, Disoriented to time - Lab Results Fish Bones: 11/22/19 05:24 11/22/19 05:24 Other Labs: Lab Results x24hrs 09/15/20 09/15/20 Range/Units 05:24 05:24 WBC 9.1 (4.8-10.8) x10^3/uL RBC 3.78 L (4.20-5.40) 10^6/uL Hgb 11.4 L (12.0-16.0) g/dL Hct 35.8 L (37.0-47.0) % MCV 94.7 (81.0-99.0) fL MCH 30.2 (27.0-31.0) pg MCHC 31.8 L (32.0-36.0) g/dL RDW 13.4 (12.0-15.0) % Plt Count 286 (130-450) 10^3/uL MPV 10.8 (7.9-10.8) fL Neut # (Auto) Not Reportable Lymph # (Auto) Not Reportable [place] # (Auto) Not Reportable Eos # (Auto) Not Reportable Baso # (Auto) Not Reportable Absolute Nucleated RBC Not Reportable Total Counted 100 Band Neuts % (Manual) 0 (0 - 10) % Abnorm Lymph % (Manual) 0 % Nucleated RBC % Not Reportable Neutrophils # (Manual) 5.8 (1.5-6.6) 10^3/uL Lymphocytes # (Manual) 1.5 (1.5-3.5) 10^3/uL Monocytes # (Manual) 0.5 (0.0-1.0) 10^3/uL Eosinophils # (Manual) 1.0 H (0-0.7) 10^3/uL Basophils # (Manual) 0.2 H (0-0.1) 10^3/uL Differential Comment MANUAL DIFFERENTIAL WBC Morphology NORMAL APPEARANCE (NORMAL) Platelet Estimate NORMAL (130-450,000) (NORMAL) Platelet Morphology NORMAL APPEARANCE (NORMAL) RBC Morph Micro Appear NORMAL APPEARANCE (NORMAL) Sodium 140 (135-145) mmol/L Potassium 3.7 (3.5-5.0) mmol/L Chloride 111 (101-111) mmol/L Carbon Dioxide 23 (21-32) mmol/L Anion Gap 6.0 (6-13) BUN 7 (6-20) mg/dL Creatinine 0.7 (0.4-1.0) mg/dL Estimated GFR (MDRD) 81 L (>89) Glucose 129 H (70-100) mg/dL Calcium 8.6 (8.5-10.3) mg/dL Lipase 50 (22-51) U/L ABX Reporting Has patient been on IV antibiotics over the past 48 hours?: Yes Assessment/Plan - Problem List (1) Dementia Impression: Patient was initially admitted as a fall at home with an increasingly complex history. She apparently has had memory loss for quite some time and is been getting progressively worse. For unknown reasons she is been spending more more time in bed over the last year. She fell/rolled out of bed 2 weeks ago and has been laying on the floor with a pillow and a blanket being taken care of by her . She does not have a primary care provider. She has been using a ezequiel genao acquaintance who is the director of medicine at [facility] to be the physician giving her family advice. But this is not a formal relationship. Today there will be a family conference for determining power of attorney general since her may be demented. Determining who her primary care provider will be. Determining need for caregivers in the home. Palliative care is involved, social work is involved. That should be around 3:30 PM today. Qualifiers: Dementia type: Alzheimer's disease (2) Orthostatic hypotension Impression: She has been treated for a UTI. Aggressively hydrated because her blood pressure kept on dropping when she stood up. Today supine blood pressure is 139/59 with a pulse of 96. Sitting is 149/81 with a pulse of 98. In standing she is 152/72 with a pulse 114. At this time only her pulse indicates slight orthostasis. We were considering Florinef or Midrin. Plan: No change at this time. No Midrin or Florinef at this time. (3) E. coli UTI Impression: Sensitive to ampicillin, cefazolin, cefepime, ceftriaxone, ertapenem, gen tamicin, imipenem, nitrofurantoin, tobramycin, and Bactrim. She is on Keflex. Today is day #2. She received 4 days of ceftriaxone prior to that. Plan: Complete 1 more day of Keflex then discontinue. (4) Fracture of left radius Impression: Presenting his left arm weakness. Films evaluated by orthopedics who feels that that fracture cannot be excluded. So we are currently treating her as if she has a fracture that is occult. Arm in sling. Plan: Follow-up with orthopedics in the outpatient setting Physical therapy when she gets home with home health
--- NOTE | 2019-11-22 17:05 | CONSULTATION NOTE ---
Palliative Care Follow Up - Referral Referring Provider: Bessy Venegas MD Time of Visit: [id number] Referral setting: Hospitalized patient Referral Reason: Dementia/FTT/Goals of Care - Information Sources Records reviewed: Previous records reviewed History/Review of Systems obtained from: Patient, Family (family meeting with Kevin , ; son Matt and his , and Kevin on the phone) Exam limitations: Clinical condition (patient with mod dementia; STM deficits) - History of Present Illness Update Brief HPI Update: This is a 79-year-old woman who is admitted on 11/17 after a fall at home, trying to put the pieces together in the context of patient's poor short-term memory, confabulation and story. Now meeting with who has very little insight into patient's cognitive decline, and verifying with sons what they have observed. Patient was diagnosed with a UTI, had been admitted with concern re garding incontinence, and identified concerns regarding being able to meet patient's care needs at home. In putting the pieces together, it does sound like patient has had some cognitive decline over the last for 4-5 years, with increasing irritability, intermittent incontinence, withdrawing more, and mostly housebound and homebound. This is been identified in the last 3 years by the , as more physical decline, and more acute decline over the last 3 to 6 months. He reports there is somewhat stubborn and not always cooperative, but does admit to that she had been having increased incontinence, both stool and urine and often did not make it to the bathroom. She has pretty much "taken to bed", he is unclear exactly when the arm pain started to happen as well, and is somewhat surprised when providing education regarding her dementia, dementia as a terminal diagnosis, and concerns for her ongoing decline as well as what her needs will be long-term. It does sound like he pretty much just goes along with what she wants, does try and help her when allowed, does admit he gets impatient at times and they do get in shouting matches as she is uncooperative, this has been consistent with her behavior here as well. Both sons expressed appropriate concern regarding their parents situation, they do understand that they are going to need more help. They had hoped that she would be able to be placed, we discussed at this point time 1 patient would refuse to go to a fpc and/or assisted living, and to she does not meet criteria for rehab given her verbalization that she most likely will not cooperate. She had acquiesced some to possibly having support in the home, and this was revisited again after our family meeting. They are looking at hiring both help for morning and evenings, they do understand 24/ supervision could include family and . There were concerns regarding patient's 's cognitive status, he does appear to have some forgetfulness, some difficulty grasping the severity of the situation, but is quite cooperative and is feeling overwhelmed. Social History - Living Situation Living arrangement: At home Living Situation: With spouse/s.o. Support System: Patient lives at home with her spouse of 60 years and her very beloved dog. She has 2 sons, both expressing appropriate concern and wanting to assist their parents. 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 Medications/Allergies - Medications Active Medication List: Active Medications Acetaminophen (Tylenol) 650 mg PO Q4HR PRN PRN Reason: Pain or Fever > 38C (100.4F) Last Admin: 11/22/19 09:37 Dose: 650 mg Documented by: Aspirin (Ecotrin) 325 mg PO DAILY [facility] Last Admin: 11/22/19 09:35 Dose: 325 mg Documented by: Cephalexin (Keflex) 250 mg PO QID [facility] Last Admin: 11/22/19 12:20 Dose: 250 mg Documented by: Potassium Chloride/Dextrose/Sod Cl () 1,000 mls @ 100 mls/hr IV .Q10H [facility] Last Admin: 11/22/19 12:20 Dose: 100 mls/hr Documented by: Lorazepam (Ativan Inj (Vial)) 1 mg IVP Q30M PRN; Protocol PRN Reason: CIWA >8 [id number] Ethyl Esters (Lovaza) 1 gm PO DAILY [facility] Last Admin: 11/22/19 09:36 Dose: 1 gm Documented by: Ondansetron HCl (Zofran Inj) 4 mg IVP Q6HR PRN PRN Reason: Nausea / Vomiting Pantoprazole Sodium (Protonix) 40 mg IVP QDAC [facility] Last Admin: 11/22/19 06:07 Dose: 40 mg Documented by: Potassium Chloride (K-Dur) 20 meq PO DAILYWM [facility] Last Admin: 11/22/19 09:36 Dose: 20 meq Documented by: Saccharomyces Boulardii (Florastor) 250 mg PO BIDWM [facility] Last Admin: 11/22/19 09:35 Dose: 250 mg Documented by: Sodium Chloride (Normal Saline Flush 0.9%) 10 ml IVP PRN PRN PRN Reason: NEEDED PER PROVIDER ORDERS Last Admin: 11/22/19 06:10 Dose: 10 ml Documented by: Sodium Chloride (Normal Saline Flush 0.9%) 10 ml IVP 0100,0900,1700 [facility] Last Admin: 11/22/19 09:37 Dose: Not Given Documented by: Thiamine HCl (Vitamin B-1) 100 mg PO DAILY [facility] Last Admin: 11/22/19 09:36 Dose: 100 mg Documented by: Allopurinol [Zyloprim] 300 mg PO DAILY 11/18/19 Aspirin [Aspirin EC] 325 mg PO DAILYWM PRN 11/18/19 Atenolol [Tenormin] 100 mg PO DAILY 11/18/19 - Allergies Allergies/Adverse Reactions: Allergies Allergy/AdvReac Type Severity Reaction Status Date / Time No Known Drug Allergies Allergy Verified 11/18/19 16:17 Review of Systems - Constitutional Constitutional: reports: Fatigue. denies: Fever, Chills - Cardiovascular Cardiovascular: reports: Decr. exercise tolerance - Respiratory Respiratory: reports: SOB with exertion. denies: SOB at rest - Gastrointestinal Gastrointestinal: reports: Other (on mechanical soft diet) - Genitourinary Genitourinary: reports: Incontinence - Musculoskeletal Musculoskeletal: reports: Limited range of motion, Muscle weakness, Transfer issues (two person assist to commode at visit; difficulaty with cueing; unable to bear weight or use left arm) - Neurological Neurological: reports: General weakness, Memory problems, Abnormal gait - Psychiatric Psychiatric: reports: Depression, Other (confabulates) - All Other Systems All Other Systems: reports: Other (limited ROS with memoroy) Physical Exam - Vital Signs Vital Signs: Vital Signs x48h Temp Pulse Resp BP Pulse Ox 11/22/19 16:09 98 168/60 H 11/22/19 15:45 36.4 C L 97 18 177/76 H 99 - Physical Exam General Appearance: positive: Alert, Other (irritatable) Eyes Bilateral: positive: Normal inspection ENT: positive: No signs of dehydration Neck: positive: Trachea midline Cardiovascular: positive: Tachycardia, Other (HTN) Respiratory: positive: No respiratory distress, Diminished in bases. negative: Wheezes Abdomen: positive: Non-tender, Soft, Other (loose BM) Skin: positive: Pallor, Dryness, Rash (dried excoriated rash left hip area; faded scarred skin lesions; unclear if recent; patient know they are there but can't explain rash; no open areas) Extremities: positive: No pedal edema Neurologic/Psychiatric: positive: Disoriented to place (knows in hospital), Disoriented to time, Weakness, Depressed mood/affect, Flat affect, Other (t remors both hands/legs with transfers) Palliative Care - POLST Patient has POLST: No Pain: Pain worsening, Location (left wrist/ hand) Performance Status: Has been reports has been helping her back in for the bathroom, though she is often incontinent before they can get there. Unclear exactly bathing situation, reports she is often resistant to any kind of assistance or help. Patient currently two-person transfer to [facility], weak and tremulous. Patient will need increased assistance at home, for transfers, toileting, and dressing. - Palliative Care Discussion: Family meeting with Kevin Rajan, son Matt and his , and son Kevin Noe in [place] on the phone. Tried to elicit information regarding patient's story regarding her cognitive and functional decline, does appear more acute over the last several weeks to months, but has been notable for her symptoms of dementia earlier. Sons have expressed concerns, though family was quite resistant to care earlier in the journey, is willing to acquiesce, and allow help at this point. 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 was quite overwhelmed regarding patient's increasing care needs, behaviors, and stubbornness. He is very hard of hearing, does present with some forgetfulness, did ask appropriate questions though, and seemed well supported by his son Matt. Anticipatory guidance given regarding dementia, expectations of continued decline, increased care needs, and concerns regarding management at home. Met with social work manager Sophia as well, provided resources regarding agencies, respite opportunities, PCPs, and private caregiving list. Patient though would be needing to be willing to be placed, patient still is able to be quite stubborn and voice her concerns. Did introduce concept of POLST, and decision making regarding patient's future advanced care planning. Reviewed patient does have a living will, that talks about a terminal diagnosis more in the context of something more acute, we discussed it does not really address concerns regarding expected ongoing decline related to her dementia, discussed this in the context of quality of life issues, and decisions in the future about hospitalization, treatments and/or no treatments, as well as DNA R. Provided copy of POLST as well as "hard choices for loving people". Also provided a high dementia roadmap which goes through the different stages of dementia, and what some of the issues are. We did discuss in the sense of urgency, patient will most likely be discharged tomorrow. Matt and his are planning to stay through the weekend, Kevin Noe is trying to get out here to provide support as well, they will start making calls for caregiving. When returned to room, patient quite upset, given she had "I thought I had visitors" and then was watching the clock for over an hour. We did discuss in the context of this that her family had lots of questions, she wanted to be involved in her decision making, though when asked exactly what it is she felt she needed or wanted she was unable to give any more information regarding this. We did revisit what she expressed earlier, which was no fpc [facility]er [facility], she was quite adamant when talking to her family about this, we also discussed that Kevin was going to need more support to be able to manage her at home, as well as the possibility of home services to help her get stronger in the context of her recent hospitalization and illness. Patient still does not present with decision-making capacity, but it is of concern of if her care needs are going to be able to be met in the home setting. We did discuss in the context of this to trial at home, patient may do better in her own home environment, and can further assess her limitations as well as the limitations of her . Results - Lab Results Lab results reviewed: Yes Fish Bones: 11/22/19 05:24 11/22/19 05:24 Lab and Imaging Results: Lab Results x24hrs 11/22/19 11/22/19 Range/Units 05:24 05:24 WBC 9.1 (4.8-10.8) x10^3/uL RBC 3.78 L (4.20-5.40) 10^6/uL Hgb 11.4 L (12.0-16.0) g/dL Hct 35.8 L (37.0-47.0) % MCV 94.7 (81.0-99.0) fL MCH 30.2 (27.0-31.0) pg MCHC 31.8 L (32.0-36.0) g/dL RDW 13.4 (12.0-15.0) % Plt Count 286 (130-450) 10^3/uL MPV 10.8 (7.9-10.8) fL Neut # (Auto) Not Reportable Lymph # (Auto) Not Reportable Comal # (Auto) Not Reportable Eos # (Auto) Not Reportable Baso # (Auto) Not Reportable Absolute Nucleated RBC Not Reportable Total Counted 100 Band Neuts % (Manual) 0 (0 - 10) % Abnorm Lymph % (Manual) 0 % Nucleated RBC % Not Reportable Neutrophils # (Manual) 5.8 (1.5-6.6) 10^3/uL Lymphocytes # (Manual) 1.5 (1.5-3.5) 10^3/uL Monocytes # (Manual) 0.5 (0.0-1.0) 10^3/uL Eosinophils # (Manual) 1.0 H (0-0.7) 10^3/uL Basophils # (Manual) 0.2 H (0-0.1) 10^3/uL Differential Comment MANUAL DIFFERENTIAL WBC Morphology NORMAL APPEARANCE (NORMAL) Platelet Estimate NORMAL (130-450,000) (NORMAL) Platelet Morphology NORMAL APPEARANCE (NORMAL) RBC Morph Micro Appear NORMAL APPEARANCE (NORMAL) Sodium 140 (135-145) mmol/L Potassium 3.7 (3.5-5.0) mmol/L Chloride 111 (101-111) mmol/L Carbon Dioxide 23 (21-32) mmol/L Anion Gap 6.0 (6-13) BUN 7 (6-20) mg/dL Creatinine 0.7 (0.4-1.0) mg/dL Estimated GFR (MDRD) 81 L (>89) Glucose 129 H (70-100) mg/dL Calcium 8.6 (8.5-10.3) mg/dL Lipase 50 (22-51) U/L Impression and Recommendations - Palliative Care Impression: This is a 79-year-old woman who presented after a fall at home, with a diagnosis of mild to moderate dementia, history of UTI currently completing antibiotics, as well as presumed left wrist fracture impacting further patient's functional status. Palliative care providing support for family meeting for transition home. Recommendations/Counseling Done: 1.Mild to moderate dementia. Does appear improving the pieces together with family, patient has had ongoing cognitive decline, more recently more acute. Patient has little insight into her current limitations, concerns remain for safety as well as transitioning home with increased care needs. Family meeting to review current resources, patient's needs, and provide anticipatory guidance regarding disease process. Patient would benefit from outpatient palliative care support, will need PCP referral LOUIE 2. Depression. Patient would most again benefit from low-dose antidepressant, follow-up with hospitalist, this may also help with neuropsychiatric behaviors related to her dementia. Would recommend starting at citalopram 10 mg daily. 3. Hypertension. Patient continues hypertensive, will need follow-up ongoing. 4. Left wrist pain. Patient continues have significant discomfort, would discharge with scheduled acetaminophen 1000 mg 3 times daily for comfort, this also may improve her willingness to continue to work with therapy. 5. Advanced care planning. Family meeting was completed with family, they do have a short-term plan, resources have been provided, discussion regarding patient's ongoing decline. Introduction to advance care planning including POLST, recommendation with hired caregivers to consider following through with this. Patient's currently is DPOAE, does present with some forgetfulness, will have to continue and evaluate if patient and has been able to manage her increased care needs at home. They do have 2 sons who are willing to follow through on this responsibility. 6. Mechanical soft diet. interested in having a dietary referral for managing her at home, hospitalist to put in order. Time Spent: 105 minutes including family meeting, counseling provided regarding anticipatory guidance of disease, advanced care planning, review of resources, and c oordination of care with hospital team.
[2019-11-23] MEDS: ACETAMINOPHEN 325 MG TABLET PO PRN ×2 (00:13→10:24)
[2019-11-23] MEDS: SODIUM CHLORIDE FLUSH 0.9% 10 ML SYRINGE IVP SCH ×2 (07:24→10:24)
[2019-11-23] MEDS: D5NS W/20 MEQ KCL 1,000 ML IV SCH (07:24)
[2019-11-23] MEDS: PANTOPRAZOLE 40 MG VIAL IVP SCH (07:24)
[2019-11-23] MEDS: THIAMINE 100 MG TABLET PO SCH (10:22)
[2019-11-23] MEDS: POTASSIUM CHLORIDE 20 MEQ TABLET PO SCH (10:23)
[2019-11-23] MEDS: OMEGA-3 ACID ETHYL ESTERS 1 GM CAPSULE PO SCH (10:23)
[2019-11-23] MEDS: SACCHAROMYCES BOULARDII 250 MG CAPSULE PO SCH (10:23)
[2019-11-23] MEDS: ASPIRIN EC 325 MG TABLET PO SCH (10:23)
[2019-11-23] MEDS: cephALEXin 250 MG CAPSULE PO SCH ×2 (10:24→14:00)
--- NOTE | 2019-11-23 10:37 | Discharge Plan ---
Discharge Plan Problem Reviewed?: Yes Disposition: Home Health Service Condition: Fair Prescriptions: Citalopram [CeleXA] 10 mg PO DAILY #30 tablet cephALEXin [Keflex] 250 mg PO QID #3 capsule Lisinopril [Prinivil] 10 mg PO DAILY #30 tablet Thiamine [Vitamin B-1] 100 mg PO DAILY #30 tablet Diet: Regular Activity Restrictions: Activity as Tolerated Shower Restrictions: No Driving Restrictions: Yes (no driving due to dementia) Assistance Devices: [facility] Concerns: You presented to our emergency room with increasing confusion superimposed on chronic memory loss. You also had developed some left arm weakness after a fall and your was concerned that you had a stroke. You had rolled out of bed in the middle of the night, he could not lift you, and you were laying on a pillow in a blanket on the floor for quite some time. Once you came to the emergency room we found you to have a urinary tract infection, a possibly broken left humerus bone, but no stroke. You were also dehydrated. Plan of Treatment: 1. You received antibiotics for a urinary tract infection. As of tomorrow you have completed treatment with Keflex by mouth. You will need to take 3 more doses. 2. Dehydration and malnourishment was treated with IV fluids and an adequate diet. 3. Memory loss and evaluation of your home life was done by palliative care consultative service as well as social work. You will be going home, after family has decided, with 29/09 supervision. This may be a combination of your , your children, and private duty caregivers. 4. Because you have been in bed for close to a year, we will be sending you home with physical therapy, Occupational Therapy, social work, and a bath aide. 5. Please see orthopedics in follow-up for your left arm. We think you have an occult, hidden fracture, and your arm is in a sling. You will need to gradually increase your range of motion with physical therapy. 6. You have been using Dr. Kayla Avalos as your de facto primary care provider. This is been mainly done over phone conversation since she is a friend of the ezequiel genao. We are requesting that you establish yourself with a primary care provider on the [place] for continuity of care. 7. We have also requested that palliative care see you in the outpatient [facility] for follow-up. They have requested that you be started on Celexa 10 mg daily. It is a medication that helps with anxiety associated with depression and dementia. Care Goals: To remain in your own home. Assessment: Because of memory loss, patient instructions are given to her son. Follow-Up Care: Home Health - PT, Home Health - OT, Home Health - ST No Smoking: If you smoke, Please STOP! Call for help. Follow-up with: Kayla Avalos MD [Physician No Access] -
--- NOTE | 2019-11-23 12:41 | DISCHARGE SUMMARY ---
"Discharge Summary Admit Date: 11/18/19 Discharge Date: 11/23/19 Discharging Provider: Phyllis Gusman MD Code Status: Attempt Resuscitation Condition at Discharge: Fair Discharge Disposition: Home Health Service - DIAGNOSES Discharge Diagnoses with Status of Each Condition: 1. Acute metabolic encephalopathy 2. Urinary tract infection with E. coli 3. Dementia, unspecified. 4. Fracture of left distal radius with fall at home 5. Elevated lipase 6. Hypokalemia 7. Hypertriglyceridemia 8. Hypertension 9. Orthostatic hypotension - HPI History of Present Illness: She is a 79-year-old white female who has a history of hypertension and is supposed to be taking atenolol, but she states that she does not have any diagnoses and takes no medications. She fell the night before admission. At least that was the story we initially got. As we went into the admission, this patient has profound dementia. Her has been taking care of her and she may have laid on the floor for up to 2 weeks since she rolled out of bed and co uld not get up. She has been leading a relatively sedentary lifestyle for close to a year with rarely getting out of bed. The patient cannot be trusted for a lucid history since she feels that she does not have dementia. When she was evaluated in the emergency room she was incontinent of stool. Complaining of left arm weakness. Confused. Obeying commands. Head CT was negative, but possible frontal hypodense area on CT was interpreted as a possible stroke by the emergency room physician. There is no rhabdomyolysis. She did have an abnormal urine indicating a UTI. Elevated white cell count. Poorly controlled hypertension. - CONSULTS | PROCEDURES Consultations: 1. Palliative care consultation with Ping Riley 2. Orthopedic Dr. Del Toro Procedures: 1. Head CT with no acute intracranial process. This is in spite of emergency room doctor feeling that there was some hypodense area. 2. MRI of the head and extremely limited exam due to movement. No large areas of restricted diffusion or significant hemorrhage. 3. Elbow x-ray with minimal effusion, no acute fracture or dislocation. Occult injury could not be excluded. Recommended repeating her films in about a week to 10 days. 4. Finger x-rays left hand without acute fracture or dislocation. Next line 5. forearm x-ray without visualized acute fracture or dislocation. 6. Abdomen pelvis CT done for elevated lipase showing a bladder wall that had normal thickness. No enteropathy. Diverticulosis. No evidence of pancreatitis. 7. E. coli on urine culture. - HOSPITAL COURSE Hospital Course: During her stay the patient was found to have moderate to severe dementia. She has had memory loss for quite some time and is been getting progressively worse. She does not have a primary care provider. She has been using a family acquaintance who is the director of medicine at [facility] to be the physician giving her family advice. But this is not a formal relationship. Family conference was held since it was clear the patient's dementia was not acknowledged by her . He appeared to have some cognitive deficits as well. Family agreed that home with now need support. They were going to be hiring private duty caregivers. During her stay she was aggressively hydrated and her orthostatic hypotension resolved. E. coli UTI was treated. She was complaining of left arm weakness so that was not a stroke. It was felt more to be a possible small fracture. Orthopedic surgery did see the patient and other than the sling no other recommendations. When she was initially admitted she was answering questions, able to be prompted but very confused. As the admission progressed, she became more herself. She is a very vivacious charming speaker who gets very angry if there is even a suggestion of her being placed in a retirement facility. Elevated lipase resolved on its own. Hypokalemia was treated. At discharge she was an alert elderly female. Temperature was 36.4. Heart rate 90. Blood pressure 150/65. Orthostatic checks were done on the day of discharge and she was not orthostatic. Respirations were 18 and unlabored. 98% on room air. She is 5 feet 6 inches tall and weighs 62.5 kg. She is well groomed female. Neck is supple. Lungs are clear without any increased respiratory effort. PMI was normally placed with a regular rate and rhythm. The abdomen was benign. Feet without any edema. While she participated with occupational therapy she required quite a bit of prompting. She did not want to work with physical therapy. She was able to eventually take some independent steps using a front wheel walker but she was unable to clear her feet to march in place. Unable to follow commands. She is discharged with home health services. Greater than 30 minutes was spent coordinating discharge. - ALLERGIES Allergies/Adverse Reactions: Allergies Allergy/AdvReac Type Severity Reaction Status Date / Time No Known Drug Allergies Allergy Verified 11/18/19 16:17 - MEDICATIONS Home Medications: Ambulatory Orders Medication Instructions Recorded Confirmed Allopurinol [Zyloprim] 300 mg PO DAILY 11/18/19 11/19/19 Acetaminophen [Tylenol] 650 mg PO Q4HR PRN tablet 11/23/19 Citalopram [CeleXA] 10 mg PO DAILY #30 tablet 11/23/19 Lisinopril [Prinivil] 10 mg PO DAILY #30 tablet 11/23/19 Thiamine [Vitamin B-1] 100 mg PO DAILY #30 tablet 11/23/19 cephALEXin [Keflex] 250 mg PO QID #3 capsule 11/23/19 - LABS Result Diagrams: 11/22/19 05:24 11/22/19 05:24"
[2019-11-23 12:47] VITALS: BP 150/65
== END 2019-11-23 14:30 | disposition home health service (06) | DRG 71 ==
LOC: EDUNIT# → ED 13:56 → MS2 15:48
PROVIDERS: ADMIT Internal Medicine; ATTEND Specialist
DX: I63.9 Cerebral infarction, unspecified (principal); G93.40 Encephalopathy, unspecified; G93.41 Metabolic encephalopathy; S52.502A Unspecified fracture of the lower end of left radius, initial encounter for closed fracture; N39.0 Urinary tract infection, site not specified; E46 Unspecified protein-calorie malnutrition; M85.832 Other specified disorders of bone density and structure, left forearm; B96.20 Unspecified Escherichia coli [E. coli] as the cause of diseases classified elsewhere; F03.90 Unspecified dementia, unspecified severity, without behavioral disturbance, psychotic disturbance, mood disturbance, and anxiety; I10 Essential (primary) hypertension; I95.1 Orthostatic hypotension; E87.6 Hypokalemia; E86.0 Dehydration; E78.1 Pure hyperglyceridemia; F41.8 Other specified anxiety disorders; R79.89 Other specified abnormal findings of blood chemistry; W06.XXXA Fall from bed, initial encounter; Y92.003 Bedroom of unspecified non-institutional (private) residence as the place of occurrence of the external cause; T44.7X6A Underdosing of beta-adrenoreceptor antagonists, initial encounter; Z91.128 Patient's intentional underdosing of medication regimen for other reason; R32 Unspecified urinary incontinence; Z74.09 Other reduced mobility; Z68.22 Body mass index [BMI] 22.0-22.9, adult; Z91.81 History of falling; Z79.82 Long term (current) use of aspirin; Z79.899 Other long term (current) drug therapy; Z87.891 Personal history of nicotine dependence
CPT/HCPCS: 36415; 70450; 70551; 73070; 73090; 73140; 74177; 80048; 80053; 80061; 81001; 82550; 82977; 83690; 83735; 84484; 85025; 85610; 87077; 87086; 87181; 93005; 93306; 96365; 96366; 97110; 97162; 97166; 99223; 99233; 99284; 99285; A9270; Q9967; 81003; 83721

== ENCOUNTER 2019-11-23 14:48 | Outpatient (CLI) | payer MEDICARE | END 2019-11-23 14:49 | disposition home or self-care (01) | LOC: EMS 14:48 | PROVIDERS: ATTEND Surgery | DX: R41.0 Disorientation, unspecified (principal); N39.0 Urinary tract infection, site not specified; Z74.01 Bed confinement status | CPT/HCPCS: A0425; A0428 ==

== ENCOUNTER 2020-04-04 18:07 | Outpatient (CLI) | payer MEDICARE | END 2020-04-04 18:08 | disposition critical access hospital (66) | LOC: EMS 18:07 | PROVIDERS: ATTEND Surgery | DX: R45.851 Suicidal ideations (principal) | CPT/HCPCS: A0425; A0429 ==

== ENCOUNTER 2020-04-04 18:22 | Emergency (ER) | payer MEDICARE ==
--- NOTE | 2020-04-04 18:38 | ED Physician Documentation ---
PD HPI MHE - Stated complaint Stated Complaint: SI - Chief complaint Chief Complaint: MHE - History obtained from History obtained from: Patient - Additional information Additional information: 79-year-old woman presents from [facility] with suicidal ideation. She states she is so bored there that she wants to kill herself. She just wants to go home. She is not suicidal here. But she says she would be suicidal if she had to go back. Caregivers there, she expressed thoughts of stabbing herself with scissors. Review of Systems Unable to obtain: Confused, Dementia PD PAST MEDICAL HISTORY - Past Medical History Cardiovascular: Hypertension Neuro: Tremors : Renal insuffiency Psych: Depression - Present Medications Home Medications: Ambulatory Orders Medication Instructions Recorded Confirmed Acetaminophen [Tylenol] 650 mg PO Q4HR PRN tablet 11/23/19 04/04/20 Lisinopril [Prinivil] 10 mg PO DAILY #30 tablet 11/23/19 04/04/20 Thiamine [Vitamin B-1] 100 mg PO DAILY #30 tablet 11/23/19 04/04/20 Aripiprazole [Abilify] 2 mg PO DAILY #30 tablet 04/04/20 Citalopram [CeleXA] 3 tab PO DAILY #90 tablet 04/04/20 Citalopram [CeleXA] 20 mg PO DAILY 04/04/20 04/04/20 Donepezil [Aricept] 5 mg PO DAILY 04/04/20 04/04/20 LORazepam [Ativan] 1 mg PO DAILY PRN 04/04/20 04/04/20 Morphine Sulfate [Morphine Sulfate 10 mg PO PRN PRN 04/04/20 04/04/20 2mg/ml soln] QUEtiapine [SEROquel] 12.5 mg PO TID PRN #45 tablet 04/04/20 QUEtiapine [SEROquel] 25 mg PO DAILY 04/04/20 04/04/20 - Allergies Allergies/Adverse Reactions: Allergies Allergy/AdvReac Type Severity Reaction Status Date / Time No Known Drug Allergies Allergy Verified 04/04/20 18:31 - Social History Does the pt smoke?: No Smoking Status: Never smoker Does the pt drink ETOH?: No Does the pt have substance abuse?: No - Immunizations Immunizations are current?: Yes - POLST Patient has POLST: No PD ED PE NORMAL - Vitals Vital signs reviewed: Yes - General General: No acute distress, Other (Is alert and oriented to person and place but not time.) - HEENT HEENT: PERRL, EOMI - Neck Neck: Supple, no meningeal sign, No bony TTP - Cardiac Cardiac: RRR, No murmur - Respiratory Respiratory: No respiratory distress, Clear bilaterally - Abdomen Abdomen: Normal bowel sounds, Soft, Non tender - Back Back: No CVA TTP, No spinal TTP - Derm Derm: Normal color, Warm and dry - Extremities Extremities: No edema, No calf tenderness / cord - Neuro Neuro: No motor deficit, No sensory deficit, Normal speech Eye Opening: Spontaneous Motor: Obeys Commands Verbal: Confused GCS Score: 14 - Psych Psych: Normal mood, Normal affect Results - Vitals Vitals: Vital Signs - 24 hr 04/04/20 04/04/20 18:31 21:55 Temperature 36.6 C 36.7 C Heart Rate 94 95 Respiratory 19 20 Rate Blood Pressure 190/73 H 162/98 H O2 Saturation 100 98 Oxygen O2 Source Room air - Labs Labs: Laboratory Tests 04/04/20 04/04/20 04/04/20 18:50 19:04 19:04 WBC 8.6 RBC 4.70 Hgb 13.6 Hct 42.7 MCV 90.9 MCH 28.9 MCHC 31.9 L RDW 14.6 Plt Count 319 MPV 10.2 Neut # (Auto) 4.9 Lymph # (Auto) 2.3 [place] # (Auto) 0.7 Eos # (Auto) 0.7 Baso # (Auto) 0.1 Absolute Nucleated RBC 0.00 Nucleated RBC % 0.0 Sodium 141 Potassium 3.8 Chloride 98 L Carbon Dioxide 28 Anion Gap 15.0 H BUN 24 H Creatinine 1.3 H Estimated GFR (MDRD) 40 L Glucose 100 Calcium 10.3 Total Bilirubin 0.3 AST 21 ALT 19 Alkaline Phosphatase 76 Total Protein 8.3 H Albumin 3.7 Globulin 4.6 H Albumin/Globulin Ratio 0.8 L Lipase 68 H TSH Urine Color YELLOW Urine Clarity HAZY Urine pH 6.5 Ur Specific Boss 1.020 Urine Protein NEGATIVE Urine Glucose (UA) NEGATIVE Urine Ketones NEGATIVE Urine Occult Blood NEGATIVE Urine Nitrite POSITIVE H Urine Bilirubin NEGATIVE Urine Urobilinogen 0.2 (NORMAL) Ur Leukocyte Esterase SMALL H Urine RBC 0-5 Urine WBC >25 H Ur Squamous Epith Cells RARE Squamous Urine Bacteria Many H Ur Microscopic Review INDICATED Urine Culture Comments INDICATED Nasal Adenovirus (PCR) Nasal B. parapertussis DNA (PCR) Nasal Coronavir 229E PCR Nasal Coronavir HKU1 PCR Nasal Coronavir NL63 PCR Nasal Coronavir OC43 PCR Nasal Enterovir/Rhinovir PCR Nasal Influenza B PCR Nasal Influenza A PCR Nasal Parainfluen 1 PCR Nasal Parainfluen 2 PCR Nasal Parainfluen 3 PCR Nasal Parainfluen 4 PCR Nasal RSV (PCR) Nasal B.pertussis DNA PCR Nasal C.pneumoniae (PCR) Jose Juan Human Metapneumo PCR Nasal M.pneumoniae (PCR) Nasal SARS-CoV-2 (PCR) Salicylates < 6.0 Urine Opiates Screen NEGATIVE Ur Oxycodone Screen NEGATIVE Urine Methadone Screen NEGATIVE Ur Propoxyphene Screen NEGATIVE Acetaminophen < 10 L Ur Barbiturates Screen NEGATIVE Ur Tricyclics Screen NEGATIVE Ur Phencyclidine Scrn NEGATIVE Ur Amphetamine Screen NEGATIVE U Methamphetamines Scrn NEGATIVE U Benzodiazepines Scrn NEGATIVE Urine Cocaine Screen NEGATIVE U Cannabinoids Screen NEGATIVE Ethyl Alcohol < 5.0 04/04/20 04/04/20 19:04 19:18 WBC RBC Hgb Hct MCV MCH MCHC RDW Plt Count MPV Neut # (Auto) Lymph # (Auto) [place] # (Auto) Eos # (Auto) Baso # (Auto) Absolute Nucleated RBC Nucleated RBC % Sodium Potassium Chloride Carbon Dioxide Anion Gap BUN Creatinine Estimated GFR (MDRD) Glucose Calcium Total Bilirubin AST ALT Alkaline Phosphatase Total Protein Albumin Globulin Albumin/Globulin Ratio Lipase TSH 1.30 Urine Color Urine Clarity Urine pH Ur Specific Boss Urine Protein Urine Glucose (UA) Urine Ketones Urine Occult Blood Urine Nitrite Urine Bilirubin Urine Urobilinogen Ur Leukocyte Esterase Urine RBC Urine WBC Ur Squamous Epith Cells Urine Bacteria Ur Microscopic Review Urine Culture Comments Nasal Adenovirus (PCR) NOT DETECTED Nasal B. parapertussis DNA (PCR) NOT DETECTED Nasal Coronavir 229E PCR NOT DETECTED Nasal Coronavir HKU1 PCR NOT DETECTED Nasal Coronavir NL63 PCR NOT DETECTED Nasal Coronavir OC43 PCR NOT DETECTED Nasal Enterovir/Rhinovir PCR NOT DETECTED Nasal Influenza B PCR NOT DETECTED Nasal Influenza A PCR NOT DETECTED Nasal Parainfluen 1 PCR NOT DETECTED Nasal Parainfluen 2 PCR NOT DETECTED Nasal Parainfluen 3 PCR NOT DETECTED Nasal Parainfluen 4 PCR NOT DETECTED Nasal RSV (PCR) NOT DETECTED Nasal B.pertussis DNA PCR NOT DETECTED Nasal C.pneumoniae (PCR) NOT DETECTED Jose [place] Human Metapneumo PCR NOT DETECTED Nasal M.pneumoniae (PCR) NOT DETECTED Nasal SARS-CoV-2 (PCR) NOT DETECTED Salicylates Urine Opiates Screen Ur Oxycodone Screen Urine Methadone Screen Ur Propoxyphene Screen Acetaminophen Ur Barbiturates Screen Ur Tricyclics Screen Ur Phencyclidine Scrn Ur Amphetamine Screen U Methamphetamines Scrn U Benzodiazepines Scrn Urine Cocaine Screen U Cannabinoids Screen Ethyl Alcohol PD MEDICAL DECISION MAKING - ED course ED course: This is a 79-year-old woman who presents from a memory care facility having threatened to kill herself because she is bored. She says she would not be suicidal if she went home (w ), but she would be suicidal if she went back to [facility]. Had a long conversation with her by phone. In November he had issues with adult protective services and that is why she is in the memory care facility in the first place. He would agree with her going back. Discussed that given the suicidal threat seems reasonable to have her evaluated by telepsychiatric consultation, but I worry that since he cannot take her home because of previous issues, the only other disposition besides going back to [facility] would be to a [facility] facility where she would probably be just as bored. Also spoke with son, Matt, by phone. Pt is debilitated, poor mobility, a two- person assist. Her could not care for her. Seen by Dr Castano, telepsych. She did not feel that the patient was a danger to self and could be safely discharged back to her current level of care recommends physical therapy and recreational therapy as well as individual therapy. An increase in her Celexa to 30 mg once a day, starting Abilify 2 mg once a day to augment her antidepressant, continue Seroquel but up to 12.5 mg p.o. 3 times daily as needed for agitation. Limit the use of benzodiazepines noting that she has a current as needed order for Ativan. Remove all sharps from patient access. Closely monitor for safety. Returning as needed. Had another extended conversation with son. Agreed with POC. Note made of UA-prob asymptomatic bacteruria given no sx UTI and nl WBC. RN pst supervisor at [facility] concerned about taking her back, I spoke with her by phone. Agreeable after discussing course and psych recs. Departure - Departure Disposition: Home, Self Care Clinical Impression: Depression Qualifiers: Depression Type: unspecified Qualified Code(s): F32.9 - Major depressive disorder, single episode, unspecified Dementia Qualifiers: Dementia type: unspecified type Dementia behavioral disturbance: with behavioral disturbance Qualified Code(s): F03.91 - Unspecified dementia with behavioral disturbance Condition: Stable Record reviewed to determine appropriate education?: Yes Instructions: ED Dementia Caregiver Support, ED Depression Prescriptions: Aripiprazole [Abilify] 2 mg PO DAILY #30 tablet Citalopram [CeleXA] 3 tab PO DAILY #90 tablet QUEtiapine [SEROquel] 12.5 mg PO TID PRN #45 tablet PRN Reason: Agitation Comments: Seen by Dr Castano, telepsychiatry: 1. She did not feel that the patient was a danger to self and could be safely discharged back to her current level of care. 2. Recommends physical therapy and recreational therapy as well as individual therapy. 3. An increase in her Celexa to 30 mg once a day. 4. Starting Abilify 2 mg once a day to augment her antidepressant. 5. Continue Seroquel but up to 12.5 mg p.o. 3 times daily as needed for agitation. 6. Limit the use of benzodiazepines noting that she has a current as needed order for Ativan. 7. Remove all sharps from patient access. 8. Closely monitor for safety. 9. Returning as needed. 10. She should have a TV and a remote, her son Matt would be happy to pay for this, he can be reached at [phone] Discharge Date/Time: 04/04/20 21:55
[2020-04-04 18:57] LABS: MUDS CUTOFF CONCENTRATIONS CUTOFF CONC BELOW:
[2020-04-04 18:59] LABS: BILIRUBIN,URINE NEGATIVE (NEGATIVE); GLUCOSE, URINE (UA) NEGATIVE (NEGATIVE); KETONES,URINE (UA) NEGATIVE (NEGATIVE); LEUKOCYTE ESTERASE, URINE SMALL (NEGATIVE); NITRITE,URINE POSITIVE (NEGATIVE); OCCULT BLOOD,URINE NEGATIVE (NEGATIVE); PH,URINE 6.5 PH (5.0-7.5); PROTEIN,URINE NEGATIVE (NEGATIVE); UROBILINOGEN,URINE 0.2 (NORMAL) E.U./dL (NORMAL)
[2020-04-04 19:02] LABS: CLARITY,URINE HAZY (CLEAR)
[2020-04-04 19:05] LABS: BACTERIA,URINE Many /HPF (None Seen); RBC,URINE 0-5 /HPF (0-5); SQUAMOUS EPITHELIAL CELL,UR RARE Squamous (<= Few)
[2020-04-04 19:09] LABS: AMPHETAMINE SCREEN,URINE NEGATIVE (NEGATIVE); BENZODIAZEPINES SCREEN, URINE NEGATIVE (NEGATIVE); COCAINE SCREEN URINE NEGATIVE (NEGATIVE); METHADONE SCREEN, URINE NEGATIVE (NEGATIVE); METHAMPHETAMINES SCREEN, URINE NEGATIVE (NEGATIVE); OPIATE SCREEN, URINE NEGATIVE (NEGATIVE); OXYCODONE SCREEN, URINE NEGATIVE (NEGATIVE); PROPOXYPHENE SCREEN, URINE NEGATIVE (NEGATIVE); TRICYCLIC ANTIDEPRESSANT,URINE NEGATIVE (NEGATIVE)
[2020-04-04 19:11] LABS: BASOPHILS # (AUTO) 0.1 10^3/uL (0.0-0.1); BASOPHILS % (AUTO) 0.6 %; EOSINOPHILS # (AUTO) 0.7 10^3/uL (0.0-0.7); EOSINOPHILS % (AUTO) 7.9 %; HGB - HEMOGLOBIN 13.6 g/dL (12.0-16.0); LYMPHOCYTES # (AUTO) 2.3 10^3/uL (1.5-3.5); LYMPHOCYTES % (AUTO) 26.1 %; MEAN CORPUSCULAR HEMOGLOBIN 28.9 pg (27.0-31.0); MEAN CORPUSCULAR HGB CONC 31.9 g/dL (32.0-36.0); MEAN CORPUSCULAR VOLUME 90.9 fL (81.0-99.0); MEAN PLATELET VOLUME 10.2 fL (7.9-10.8); MONOCYTES # (AUTO) 0.7 10^3/uL (0.0-1.0); MONOCYTES % (AUTO) 8.6 %; NEUTROPHILS # (AUTO) 4.9 10^3/uL (1.5-6.6); NEUTROPHILS % (AUTO) 56.6 %; PLT - PLATELET COUNT 319 10^3/uL (130-450); RED CELL DISTRIBUTION WIDTH 14.6 % (12.0-15.0); WHITE BLOOD COUNT 8.6 x10^3/uL (4.8-10.8)
[2020-04-04 19:28] LABS: ACETAMINOPHEN < 10 ug/mL (10-30); ALBUMIN 3.7 g/dL (3.2-5.5); ALBUMIN/GLOBULIN RATIO 0.8 (1.0-2.2); ALKALINE PHOSPHATASE 76 IU/L (42-121); ALT ALANINE AMINOTRANSFERASE 19 IU/L (10-60); AST ASPARTATE AMINOTRANSFERASE 21 IU/L (10-42); BILIRUBIN,TOTAL 0.3 mg/dL (0.2-1.0); BUN - BLOOD UREA NITROGEN 24 mg/dL (6-20); CALCIUM 10.3 mg/dL (8.5-10.3); CARBON DIOXIDE - CO2 28 mmol/L (21-32); CHLORIDE 98 mmol/L (101-111); CREATININE 1.3 mg/dL (0.4-1.0); GLUCOSE 100 mg/dL (70-100); LIPASE 68 U/L (22-51); SALICYLATE < 6.0 mg/dL; TOTAL PROTEIN 8.3 g/dL (6.7-8.2)
[2020-04-04 20:30] LABS: C. PNEUMONIAE- RESP PCR PANEL NOT DETECTED
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
[2020-04-04] MEDS: QUEtiapine 25 MG TABLET PO STA ×2 (21:42→21:50)
[2020-04-04 22:06] VITALS: BP 162/98
== END 2020-04-04 21:55 | disposition home or self-care (01) ==
LOC: EDUNIT# → SUPCPDRO 18:22 → ED 18:22
DX: F32.9 Major depressive disorder, single episode, unspecified (principal); R45.851 Suicidal ideations; F03.91 Unspecified dementia, unspecified severity, with behavioral disturbance; I10 Essential (primary) hypertension; Z20.822 Contact with and (suspected) exposure to COVID-19
CPT/HCPCS: 36415; 80053; 81001; 83690; 84443; 85025; 87631; 99281; 99283; A9270; G0427; 0202U; 80306; 80307; 80320; 80329; 81003; 87086

== ENCOUNTER 2020-04-04 21:55 | Outpatient (CLI) | payer MEDICARE | END 2020-04-04 21:56 | disposition home or self-care (01) | LOC: EMS 21:55 | PROVIDERS: ATTEND Surgery | DX: F03.90 Unspecified dementia, unspecified severity, without behavioral disturbance, psychotic disturbance, mood disturbance, and anxiety (principal); F32.9 Major depressive disorder, single episode, unspecified | CPT/HCPCS: A0425; A0428 ==